=== PATIENT | male | born 1950 | race Caucasian/White ===

== ENCOUNTER 2017-08-07 14:38 | Observation (INO) | payer OTHER ==
--- NOTE | 2017-08-07 14:40 | PDOC ---
Rapid Medical Evaluation Time Seen by Provider: 08/07/17 14:40 Medical Evaluation: Allergies Allergy/AdvReac Type Severity Reaction Status Date / Time tramadol Allergy Verified 08/07/17 14:39 08/07/17 14:40 66 year old male with HTN, NIDDM, HLD, obesity, cigarette smoking, fatty liver disease, GERD. Presents complaining of chest pain that started while cleaning kitchen today. Pain currently 10/10, with shortness of breath. +Diaphoresis. Under some stress caring for sick . 7 cigarettes per day since age 16, "quit" last Saturday BP at home 99/61, patient reports baseline 140s systolic Had stress test 3 yrs ago which he reports was normal. 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 Alert, oriented, appears anxious. RRR, S1/S2. Scant expiratory wheeze. Plan: -Stat EKG -Labs including CBC, CMP, PT/INR, BNP, troponin -CXR -To Main ED for further evaluation
[2017-08-07 14:46] VITALS: BMI 42.5
[2017-08-07 15:19] LABS: BASO % 0.5 % (0-2.0); EOS % 1.2 % (0-4.5); HEMATOCRIT 47.6 % (35.4-49); HEMOGLOBIN 16.3 GM/dL (11.7-16.9); LYMPH % 36.9 % (8-40); MCH 31.9 pg (25.7-33.7); MCHC 34.3 g/dl (32.0-35.9); MEAN CELL VOLUME 92.9 fl (80-96); MEAN PLT VOLUME 8.5 fl (7.5-11.1); MONO % 11.1 % (3.8-10.2); NEUT % 50.3 % (42.8-82.8); PLATELET COUNT 188 K/MM3 (134-434); RBC 5.12 M/mm3 (4.00-5.60); RDW 14.3 % (11.9-15.9); WHITE BLOOD COUNT 5.9 K/mm3 (4.0-10.0)
--- NOTE | 2017-08-07 15:20 | PDOC ---
History of Present Illness - General Chief Complaint: Chest Pain Stated Complaint: SICK Time Seen by Provider: 08/07/17 14:40 - History of Present Illness Initial Comments: 08/07/17 15:55 The patient is a 66 year old male with a history of HTN, HLD, DM who presents for evaluation of chest pain. The patient reports that he has been experiencing nausea, cough, over the past 1 week for which he saw his primary care provider 1 day ago and was diagnosed with an Upper Respiratory Illness. However, he reports experiencing severe left sided constant chest pressure with associated "sweating" while cleaning earlier today prompting his presentation to the ED for evaluation. He denies similar symptoms in the past and noted that his bp was low at home as well. He otherwise denies fevers, chills, SOB, vomiting, abdominal pain, or changes with urination or bowel movements. Past History - Past Medical History Allergies/Adverse Reactions: Allergies Allergy/AdvReac Type Severity Reaction Status Date / Time tramadol Allergy Verified 08/07/17 14:39 Home Medications: Ambulatory Orders Losartan Potassium [Cozaar] 100 mg PO HS 06/08/13 Linagliptin/Metformin HCl [Jentadueto 2.5 mg-1000 mg Tab] 1 each PO BID Simvastatin [Zocor -] 10 mg PO DAILY 06/09/13 Empagliflozin [Jardiance] 10 mg PO DAILY 10/19/14 Cyclobenzaprine HCl [Flexeril] 5 mg PO PRN PRN 01/09/15 Ergocalciferol (Vitamin D2) [Vitamin D] 50,000 unit PO WEEKLY 03/28/15 Omeprazole [Prilosec (RX)] 40 mg PO DAILY 03/28/15 Pramipexole Di-HCl [Mirapex] 5 mg PO HS 03/28/15 Zolpidem Tartrate [Ambien] 10 mg PO HS 03/28/15 Albuterol Sulfate Inhaler - [Ventolin HFA Inhaler -] 2 inh PO Q6H 10/10/15 Tamsulosin HCl [Flomax -] 0.4 mg PO HS 10/10/15 Vitamin B Complex [B Complex] 1 each PO DAILY 10/10/15 levoFLOXacin [Levaquin -] 500 mg PO DAILY #7 tablet 10/11/15 Acarbose [Precose -] 25 mg PO DAILY 08/07/17 Glipizide [Glipizide ER] 10 mg PO DAILY 08/07/17 Anemia: No Asthma: Yes Cancer: No Cardiac Disorders: Yes (SOB,) CVA: No COPD: No (sleep apnea, USES CPAP) CHF: No Dementia: No Diabetes: Yes GI Disorders: Yes (GERD) Disorders: Yes (KIDNEY STONES) HTN: Yes Hypercholesterolemia: Yes Kidney Stones: Yes Liver Disease: Yes (FATTY LIVER) Seizures: No Thyroid Disease: No - Surgical History Abdominal Surgery: Yes Appendectomy: No Cardiac Surgery: No Cholecystectomy: Yes Lung Surgery: No Neurologic Surgery: No Orthopedic Surgery: Yes (LEFT KNEE SX) - Immunization History Immunization Up to Date: Yes - Suicide/Smoking/Psychosocial Hx Smoking Status: Yes Smoking History: Current every day smoker Have you smoked in the past 12 months: Yes Number of Cigarettes Smoked Daily: 7 Information on smoking cessation initiated: No 'Breaking Loose' booklet given: 10/19/14 Hx Alcohol Use: No Drug/Substance Use Hx: No Substance Use Type: None Hx Substance Use Treatment: Yes Review of Systems - Review of Systems Comments:: 08/07/17 15:59 Constitutional: No fevers, chills, fatigue, malaise HEENT: No Rhinorrhea, nasal congestion, visual changes Cardiovascular: Chest pain, Palpitations. No syncope, lightheadedness Respiratory: Cough. No SOB, Hemoptysis, Gastrointestinal: Nausea. No Abdominal pain, Vomiting, Constipation, Diarrhea, Melena Genitourinary: No Dysuria, Frequency, Urgency, Hesitancy, Hematuria, Flank pain Musculoskeletal: No Myalgia, arthralgia Skin: No rashes, itching, bruising, pallor Neurologic: No Headache, Dizziness, Numbness, Weakness, or Tingling Psychiatric: No Hallucinations. No SI or HI *Physical Exam - Vital Signs Last Vital Signs Temp Pulse Resp BP Pulse Ox 98.3 F 90 16 110/57 97 08/07/17 14:40 08/07/17 14:40 08/07/17 14:40 08/07/17 14:40 08/07/17 14:40 - Physical Exam Comments: 08/07/17 16:00 General Appearance: Nourished. No Apparent Distress HEENT: EOMI, CÉSAR. No Pharyngeal Erythema, Tonsillar Exudate, Tonsillar Erythema Neck: No Cervical Lymphadenopathy Respiratory/Chest: Lungs Clear, Normal Breath Sounds. Mild expiratory wheezing noted on exam. Mild reproducible tenderness to palpation on the left anterior chest. No Crackles, Rales, Rhonchi, Cardiovascular: Regular Rhythm, Regular Rate. No Murmur, Gallops, Rubs Gastrointestinal/Abdominal: Normal Bowel Sounds, Soft. No Guarding, Rebound, Tenderness Musculoskeletal: No CVA Tenderness Extremity: Normal Capillary Refill Integumentary: Psoriasis noted to the patient's back. Normal Color, Dry, Warm Neurologic: Fully Oriented, Alert, Normal Mood/Affect, Normal Response, Heart Score/ECG Review - History History: Moderately suspicious - Electrocardiogram EKG: Non specific repolarization disturbance - Age Age: 45-65 - Risk Factors Risk Factors Heart Score: Yes Hx Hypercholesterolemia, Yes Hx Hypertension, Yes Hx Diabetes, Yes Smoking History, Yes Hx Obesity Based on the list above the patient has:: >/=3 risk factors or Hx atherosclerotic disease - Troponin Troponin: </= normal limit - Score Heart Score - Total: 5 #1 ECG reviewed & interpreted by me at: 15:42 (Right Bundle Branch Block) General ECG Interpretation: Sinus Rhythm, Normal Rate, No acute ischemic changes Compared to previous ECG there are: No significant change (10/10/15) ED Treatment Course - LABORATORY CBC & Chemistry Diagram: 08/07/17 15:00 08/07/17 15:00 Medical Decision Making - Medical Decision Making 08/07/17 16:02 The patient is a 66 year old male with a history of HTN, HLD, DM who presents for evaluation of chest pain. Differential includes but is not limited to: ACS , Arrhythmia, Pneumonia, infectious, metabolic derangement. Given the patient' s history and physical exam, we will obtain a cbc, cmp, troponin, bnp, lactate, blood cultures, chest plain film, and ekg to evaluate further. We will treat the patient in the meantime with duoneb, solu-medrol, zosyn, and iv fluids. We will continue to monitor and reassess in the meantime. 08/07/17 17:42 cbc, cmp, troponin, bnp, lactate are unremarkable. Chest Plain film is unremarkable as read by our radiologist. We discussed the case with Dr. Padgett who accepted the patient for admission. We will continue to monitor and reassess. *DC/Admit/Observation/Transfer Diagnosis at time of Disposition: Chest pain Qualifiers: Chest pain type: unspecified Qualified Code(s): R07.9 - Chest pain, unspecified - Discharge Dispostion Condition at time of disposition: Stable Admit: Yes - Referrals Referrals: Albert Quinonez MD [Primary Care Provider] - - Patient Instructions - Post Discharge Activity
[2017-08-07 15:40] LABS: PROTHROMBIN TIME (PATIENT) 11.3 SEC (9.7-13.0)
[2017-08-07 15:51] LABS: ALBUMIN 3.5 g/dl (3.4-5.0); ANION GAP 6 (8-16); BILIRUBIN,TOTAL 0.5 mg/dL (0.2-1.0); BLOOD UREA NITROGEN 18 mg/dL (7-18); CHLORIDE 106 mmol/L (98-107); CO2 27 mmol/L (21-32); CREATININE 1.2 mg/dL (0.7-1.3); GLUCOSE,RANDOM 146 mg/dL (74-106); SGPT/ALT 39 U/L (12-78); SODIUM 139 mmol/L (136-145); TOT PROT 6.9 g/dl (6.4-8.2)
--- NOTE | 2017-08-07 15:51 | PDOC ---
Attending Attestation - Resident Resident Name: Tip Curran - ED Attending Attestation I have performed the following: I have examined & evaluated the patient, The case was reviewed & discussed with the resident, I agree w/resident's findings & plan, Exceptions are as noted - Medical Decision Making 08/07/17 15:51 I, Dr. Hamida Dial, DO, attest that this document has been prepared under my direction and personally reviewed by me in its entirety. I further attest, that it accurately reflects all work, treatment, procedures and medical decision -making performed by me. 08/07/17 16:07 a/p: 66yo male with asthma, copd, tobacco use, dm with CP/SOb on exertion -diaphoretic with cp -recent URI with MINER and CP -will check labs, cultures, trop, ekg, cxr, nebs, ivf hydration, nausea control -will hydrate -suspect 8lb wt loss from uncontrolled dm - unable to take his meds secondary to n/v -will most likely need to stay for obs for cardiac eval for ACS given diaphoresis, miner, cp <Hamida Dial - Last Filed: 08/07/17 16:07> - HPI HPI: 08/07/17 16:16 The patient is a 66 year old male, with a significant past medical history of silver scale psoriasis, asthma and COPD, who presents to the emergency department with chest pain, shortness of breath, diaphoresis for 24 hours. He states he was sick with runny nose and dry cough for about a week before being seen b7 a doctor yesterday who diagnosed the patient with URI and prescribed levaquin. The patient states he became concerned about the left sided, constant chest pain, because he has never experienced the pain before. He denies radiation of his chest pain. He reports his chest pain and SOB and exacerbated with walking short distances. He also reports associated diaphoresis with his chest pain. He states he has had decreased appetite and 8lb weight loss in the past 7 days. He states the smell and taste of food has been off putting. He states his blood sugars have been all over the past week but will usually be low 150s. He states he has been intermittently nauseous and has not taken his medications because of the nausea. He reports 2 bowel movements today. He denies headache and dizziness. He denies fever, chills diarrhea and constipation. He denies dysuria, frequency, urgency and hematuria. Allergies: tramadol - Physicial Exam PE: 08/07/17 16:16 Constitutional: Awake, alert, oriented. No acute distress. Head: Normocephalic. Atraumatic Eyes: PERRL. EOMI. Conjunctivae are not pale. ENT: (+) Mucous membranes are DRY and intact. Posterior pharynx without exudates or erythema. Uvula midline. Neck: Supple. Full ROM. No lymphadenopathy. Cardiovascular: Regular rate. Regular rhythm. S1, S2 regular. Distal pulses are 2+ and symmetric. Pulmonary/Chest: (+) Diminished breath sounds.Left anterior chest wall ttp. No evidence of respiratory distress. Clear to auscultation bilaterally No wheezing, rales or rhonchi. Abdominal: Obese, Soft and non-distended. There is no tenderness. No rebound, guarding or rigidity. No organomegaly. No palpable masses. Good bowel sounds. Back: No CVA tenderness. Musculoskeletal: (+) trace edema to bilateral ankles. No cyanosis. No clubbing. Full range of motion in all extremities. Nocalf tenderness. Radial/ pedal pulses are intact and 2+ bilaterally Skin: (+) Silver scale psoriasis diffusely to back and upper extremitie. Skin is warm and dry. No petechiae. No purpura. Neurological: Alert and oriented to person, place, and time. Cranial nerves II -XII are grossly intact. Normal speech. Strength is grossly symmetric. No sensory deficits. Psychiatric: Good eye contact. Normal interaction, affect and behavior. - Medical Decision Making 08/07/17 16:16 Documentation prepared by Shanda Bryson, acting as medical technician assistant for Hamida Dial DO <Shanda Bryson - Last Filed: 08/07/17 16:16> Heart Score/ECG Review - ECG Intrepretation Comment:: 08/07/17 15:51 sinus at 85, RBBB, no acute st/t wave findings <Hamida Dial - Last Filed: 08/07/17 16:07>
[2017-08-07 15:54] LABS: ALK PHOS 92 U/L (45-117); N-TERMINAL BNP 45.46 pg/ml (5-125)
[2017-08-07 16:01] LABS: POTASSIUM 4.2 mmol/L (3.5-5.1); SGOT/AST 37 U/L (15-37)
[2017-08-07] MEDS ORDERED: ASPIRIN 81 MG CHEWABLE TABLETS PO ONE (16:02)
[2017-08-07] MEDS ORDERED: methylPREDNISolone NA SUCC 125 MG/2 ML VIAL IVPB ONE (16:02)
[2017-08-07] MEDS ORDERED: SODIUM CHLORIDE 0.9% 1000 ML INFUS.BAG IV ONE (16:02)
[2017-08-07] MEDS ORDERED: ONDANSETRON 4 MG/2 ML VIAL IVPUSH ONE (16:02)
[2017-08-07] MEDS ORDERED: ALBUTEROL SO4 2.5/IPRATROPIUM 0.5 INH SOL 3 ML VIAL.NEB. NEB ONE ×2 (16:02→16:12)
[2017-08-07] MEDS ORDERED: methylPREDNISolone NA SUCC 125 MG/2 ML VIAL ONE (16:12)
[2017-08-07] MEDS ORDERED: ONDANSETRON 4 MG/2 ML VIAL ONE (16:12)
[2017-08-07] MEDS ORDERED: ASPIRIN 81 MG CHEWABLE TABLETS ONE (16:12)
[2017-08-07 16:33] LABS: VENOUS PC02 41.5 mmHg (38-52); VENOUS PH 7.4 (7.32-7.42)
--- NOTE | 2017-08-07 19:51 | EKG ---
Test Reason : Blood Pressure : / mmHG Vent. Rate : 085 BPM Atrial Rate : 085 BPM P-R Int : 144 ms QRS Dur : 134 ms QT Int : 414 ms P-R-T Axes : 039 017 014 degrees QTc Int : 492 ms NORMAL SINUS RHYTHM RIGHT BUNDLE BRANCH BLOCK ABNORMAL ECG WHEN COMPARED WITH ECG OF 10-OCT-2015 04:27, NO SIGNIFICANT CHANGE WAS FOUND Confirmed by DIAN STEVENSON MD ([id number]) on 08/07/2017 7:51:30 PM Referred By: Confirmed By:DIAN STEVENSON MD
[2017-08-07] MEDS ORDERED: ZOLPIDEM TARTRATE 5 MG TABLET PO PRN (23:16)
[2017-08-08] MEDS ORDERED: ALBUTEROL SO4 2.5/IPRATROPIUM 0.5 INH SOL 3 ML VIAL.NEB. NEB PRN (02:51)
[2017-08-08] MEDS ORDERED: PT OWN MED DRAWER 7, Y5N ONE ×3 (05:56→17:22)
[2017-08-08] MEDS: INSULIN SLIDING SCALE (NOVOLOG) 1 VIAL SQ SCH ×4 (06:28→17:11)
[2017-08-08] MEDS ORDERED: glipiZIDE-XL 10 MG TAB.ER.24 (FP) PO SCH (07:00)
[2017-08-08 08:01] LABS: BASO % 0.1 % (0-2.0); HEMATOCRIT 48.3 % (35.4-49); HEMOGLOBIN 16.3 GM/dL (11.7-16.9); LYMPH % 14.7 % (8-40); MCH 31.8 pg (25.7-33.7); MCHC 33.7 g/dl (32.0-35.9); MEAN CELL VOLUME 94.2 fl (80-96); MEAN PLT VOLUME 8.5 fl (7.5-11.1); MONO % 5.4 % (3.8-10.2); NEUT % 79.8 % (42.8-82.8); PLATELET COUNT 207 K/MM3 (134-434); RBC 5.13 M/mm3 (4.00-5.60); WHITE BLOOD COUNT 6.8 K/mm3 (4.0-10.0)
[2017-08-08 08:14] LABS: ALBUMIN 3.7 g/dl (3.4-5.0); ANION GAP 10 (8-16); BLOOD UREA NITROGEN 17 mg/dL (7-18); CALCIUM 9.7 mg/dL (8.5-10.1); CHLORIDE 103 mmol/L (98-107); CO2 27 mmol/L (21-32); CREATININE 1.3 mg/dL (0.7-1.3); GLUCOSE,RANDOM 228 mg/dL (74-106); POTASSIUM 5.5 mmol/L (3.5-5.1); SGOT/AST 26 U/L (15-37); SGPT/ALT 41 U/L (12-78); SODIUM 140 mmol/L (136-145)
[2017-08-08 08:19] LABS: ALK PHOS 93 U/L (45-117); BILIRUBIN,TOTAL 0.4 mg/dL (0.2-1.0); TOT PROT 7.4 g/dl (6.4-8.2)
[2017-08-08] MEDS ORDERED: PATIENT'S OWN MEDICATION (NON-FORMULARY) (Linagliptin/Metformin Hcl [Jentadueto 2.5 Mg-100 PO SCH (10:00)
[2017-08-08] MEDS ORDERED: PATIENT'S OWN MEDICATION (NON-FORMULARY) (Empagliflozin [Jardiance] 10 MG) PO SCH (10:00)
[2017-08-08] MEDS ORDERED: ACARBOSE 25 MG PO SCH (10:00)
[2017-08-08] MEDS ORDERED: HEPARIN NA (PORCINE) 5,000 UNITS/ML 1ML VIAL SQ SCH (10:00)
[2017-08-08] MEDS ORDERED: PANTOPRAZOLE 40 MG TABLET (FP) PO SCH (10:00)
--- NOTE | 2017-08-08 11:43 | CON.CARD ---
Consult Consult Specialty:: cardiology Reason for Consultation:: shortness of breath; atypical chest pain - History of Present Illness Chief Complaint: A&OX3; feels weak. History of Present Illness: The patient is a 66 year old male with a history of HTN, HLD, DM, diastolic CHF , ?COPD (on bronchodilators at home), morbid obesity, psoriatic arhtiritis, nonobstructive CAD (coronary angiogram done 2017). who presents for evaluation of chest pain. The patient reports that he has been experiencing nausea, cough , over the past 1 week for which he saw his primary care provider 1 day ago and was diagnosed with an Upper Respiratory Illness. However, he reports experiencing severe left sided constant chest pressure with associated "sweating " while cleaning earlier today prompting his presentation to the ED for evaluation. He denies similar symptoms in the past and noted that his bp was low at home as well. He otherwise denies fevers, chills, SOB, vomiting, abdominal pain, or changes with urination or bowel movements. - History Source History Provided By: Patient, Medical Record Limitations to Obtaining History: No Limitations - Past Medical History Cardio/Vascular: Yes: CAD, CHF, HTN, Hyperlipdemia Pulmonary: Yes: Asthma Gastrointestinal: Yes: GERD Rheumatology: Yes: Other (psoriatic arthritis) - Alcohol/Substance Use Hx Alcohol Use: No - Smoking History Smoking history: Current every day smoker Have you smoked in the past 12 months: Yes Aproximately how many cigarettes per day: 5 Home Medications - Allergies Allergies/Adverse Reactions: Allergies Allergy/AdvReac Type Severity Reaction Status Date / Time tramadol Allergy Verified 08/07/17 14:39 - Home Medications Home Medications: Ambulatory Orders Losartan Potassium [Cozaar] 100 mg PO HS 06/08/13 Linagliptin/Metformin HCl [Jentadueto 2.5 mg-1000 mg Tab] 1 each PO BID Simvastatin [Zocor -] 10 mg PO DAILY 06/09/13 Empagliflozin [Jardiance] 10 mg PO DAILY 10/19/14 Cyclobenzaprine HCl [Flexeril] 5 mg PO PRN PRN 01/09/15 Ergocalciferol (Vitamin D2) [Vitamin D] 50,000 unit PO WEEKLY 03/28/15 Omeprazole [Prilosec (RX)] 40 mg PO DAILY 03/28/15 Pramipexole Di-HCl [Mirapex] 5 mg PO HS 03/28/15 Zolpidem Tartrate [Ambien] 10 mg PO HS 03/28/15 Albuterol Sulfate Inhaler - [Ventolin HFA Inhaler -] 2 inh PO Q6H 10/10/15 Tamsulosin HCl [Flomax -] 0.4 mg PO HS 10/10/15 Vitamin B Complex [B Complex] 1 each PO DAILY 10/10/15 levoFLOXacin [Levaquin -] 500 mg PO DAILY #7 tablet 10/11/15 Acarbose [Precose -] 25 mg PO DAILY 08/07/17 Glipizide [Glipizide ER] 10 mg PO DAILY 08/07/17 - Risk Factors Known Risk Factors: Yes: Age, Diabetes Mellitus, Gender, Hypercholesterolemia, Hypertension, Physical Inactivity, Other (diastolic CHF; nonobstructive CAD; morbid obesity) Vital Signs: Vital Signs Temperature 98 F 08/08/17 10:00 Pulse Rate 68 08/08/17 10:00 Respiratory Rate 20 08/08/17 10:00 Blood Pressure 142/72 08/08/17 10:00 O2 Sat by Pulse Oximetry (%) 96 08/08/17 10:52 Constitutional: Yes: Calm, Obese Eyes: Yes: WNL HENT: Yes: WNL Neck: Yes: WNL Respiratory: Yes: Cough Gastrointestinal: Yes: Soft, Abdomen, Obese Renal/: No: Anuria Cardiovascular: Yes: Regular Rate and Rhythm JVD: No Carotid Bruit: No PMI: Non-Displaced Heart Sounds: Yes: S1, Split S2, S4 Murmur: Yes: Systolic Murmur, Grade 1 Musculoskeletal: Yes: Joint Stiffness (hands), Other (tenderness to mild palpation of the left anterior and central chest wall; no acute rash, but chronic psoriatic lesions) Extremities: Yes: WNL Edema: No Peripheral Pulses WNL: Yes Integumentary: Yes: Rash (marked psoriatic lesion covering the back; some lesions on the chest) Psychiatric: Yes: WNL - Other Data Labs, Other Data: CBC, BMP 08/08/17 07:20 08/08/17 07:20 INR, PTT INR 1.00 (0.82-1.09) 08/07/17 15:00 Troponin, BNP 08/07/17 08/08/17 15:00 03:45 Troponin I < 0.02 < 0.02 B-Natriuretic Peptide 45.46 Troponin, BNP 08/07/17 08/08/17 15:00 03:45 Troponin I < 0.02 < 0.02 B-Natriuretic Peptide 45.46 Abnormal Lab Results 08/07/17 08/07/17 08/07/17 15:00 15:00 16:16 Monocytes % 11.1 H Mixed VBG HCO3 25.3 H Potassium Anion Gap 6 L Random Glucose 146 H 08/08/17 07:20 Monocytes % Mixed VBG HCO3 Potassium 5.5 H D Anion Gap Random Glucose 228 H D Imaging - Results Chest X-ray: Image Reviewed (no acute pathology) EKG: Image Reviewed (NSR: RBBB) Problem List - Problems (1) Atypical chest pain Assessment/Plan: chest wall is tender to mild palpation. Hx nonobstuctive CAD on coronary angiogram done in 2017. Code(s): R07.89 - OTHER CHEST PAIN (2) Hyperkalemia Assessment/Plan: hold losartan; when K normalizes, restart at lower dose (HTN; DM). Code(s): E87.5 - HYPERKALEMIA (3) Abdominal pain Code(s): R10.9 - UNSPECIFIED ABDOMINAL PAIN Qualifiers: Abdominal location: right upper quadrant Qualified Code(s): R10.11 - Right upper quadrant pain (4) Back pain Code(s): M54.9 - DORSALGIA, UNSPECIFIED (5) Calculus of left kidney Code(s): N20.0 - CALCULUS OF KIDNEY (6) Diastolic CHF Assessment/Plan: ECHO: normal LVEF. loaraqtn held due to hyperkalemia; f/u Mg. Restart losartan at lower dose when K normaliizes. F/u cardiac issues as outpatient. Code(s): I50.30 - UNSPECIFIED DIASTOLIC (CONGESTIVE) HEART FAILURE
[2017-08-08 14:31] LABS: CHOLESTEROL 108 mg/dL (50-200); HDL CHOLESTEROL 41 mg/dL (40-60); TRIGLYCERIDES 150 mg/dL (35-160)
--- NOTE | 2017-08-08 15:29 | HP ---
Admitting History and Physical - Past Medical History Cardiovascular: Yes: CAD, CHF, HTN, Hyperlipdemia Pulmonary: Yes: Asthma Gastrointestinal: Yes: GERD Rheumatology: Yes: Other (psoriatic arthritis) - Smoking History Smoking history: Current every day smoker Have you smoked in the past 12 months: Yes Aproximately how many cigarettes per day: 5 - Alcohol/Substance Use Hx Alcohol Use: No Home Medications - Allergies Allergies/Adverse Reactions: Allergies Allergy/AdvReac Type Severity Reaction Status Date / Time tramadol Allergy Verified 08/07/17 14:39 - Home Medications Home Medications: Ambulatory Orders Losartan Potassium [Cozaar] 100 mg PO HS 06/08/13 Linagliptin/Metformin HCl [Jentadueto 2.5 mg-1000 mg Tab] 1 each PO BID Simvastatin [Zocor -] 10 mg PO DAILY 06/09/13 Empagliflozin [Jardiance] 10 mg PO DAILY 10/19/14 Cyclobenzaprine HCl [Flexeril] 5 mg PO PRN PRN 01/09/15 Ergocalciferol (Vitamin D2) [Vitamin D] 50,000 unit PO WEEKLY 03/28/15 Omeprazole [Prilosec (RX)] 40 mg PO DAILY 03/28/15 Pramipexole Di-HCl [Mirapex] 5 mg PO HS 03/28/15 Zolpidem Tartrate [Ambien] 10 mg PO HS 03/28/15 Albuterol Sulfate Inhaler - [Ventolin HFA Inhaler -] 2 inh PO Q6H 10/10/15 Tamsulosin HCl [Flomax -] 0.4 mg PO HS 10/10/15 Vitamin B Complex [B Complex] 1 each PO DAILY 10/10/15 levoFLOXacin [Levaquin -] 500 mg PO DAILY #7 tablet 10/11/15 Acarbose [Precose -] 25 mg PO DAILY 08/07/17 Glipizide [Glipizide ER] 10 mg PO DAILY 08/07/17 Physical Examination Vital Signs: Vital Signs Temperature 98 F 08/08/17 10:00 Pulse Rate 68 08/08/17 10:00 Respiratory Rate 20 08/08/17 10:00 Blood Pressure 142/72 08/08/17 10:00 O2 Sat by Pulse Oximetry (%) 96 08/08/17 10:52 Labs: CBC, BMP 08/08/17 07:20 08/08/17 07:20
[2017-08-08] MEDS ORDERED: metFORMIN HCL 500 MG TABLET (FP) PO SCH (16:30)
[2017-08-08 19:40] VITALS: BP 118/67; PULSE 65; TEMP 98.8
[2017-08-08] MEDS ORDERED: LOSARTAN POTASSIUM 50 MG TABLET (FP) PO SCH (22:00)
[2017-08-08] MEDS ORDERED: PRAMIPEXOLE DIHYDROCHLORIDE 1 MG TABLET PO SCH (22:00)
[2017-08-09] MEDS ORDERED: sitaGLIPtin PHOSPHATE 100 MG TABLET (FP) PO SCH (07:00)
[2017-08-12] MEDS ORDERED: ERGOCALCIFEROL (VITAMIN D2) 50,000 UNIT CAPSULE (FP) PO SCH (10:00)
== END 2017-08-08 19:18 | disposition home or self-care (01) ==
LOC: JER 14:38 → JERBED 17:38 → J4W 19:15
PROVIDERS: ADMIT Internal Medicine; ATTEND Internal Medicine
PROC: 3E033GC Introduction of Other Therapeutic Substance into Peripheral Vein, Percutaneous Approach (ICD-10-PCS; principal; 2017-08-07)
PROC: 3E0337Z Introduction of Electrolytic and Water Balance Substance into Peripheral Vein, Percutaneous Approach (ICD-10-PCS; 2017-08-07)
PROC: 3E0F7GC Introduction of Other Therapeutic Substance into Respiratory Tract, Via Natural or Artificial Opening (ICD-10-PCS; 2017-08-07)
DX: R07.89 Other chest pain (principal); I10 Essential (primary) hypertension; I50.30 Unspecified diastolic (congestive) heart failure; E11.9 Type 2 diabetes mellitus without complications; I25.10 Atherosclerotic heart disease of native coronary artery without angina pectoris; E78.5 Hyperlipidemia, unspecified; E66.9 Obesity, unspecified; F17.210 Nicotine dependence, cigarettes, uncomplicated; K76.0 Fatty (change of) liver, not elsewhere classified; E87.5 Hyperkalemia; K21.9 Gastro-esophageal reflux disease without esophagitis; J45.909 Unspecified asthma, uncomplicated; G47.30 Sleep apnea, unspecified; M54.9 Dorsalgia, unspecified; R10.11 Right upper quadrant pain; Z68.41 Body mass index [BMI] 40.0-44.9, adult; Z79.84 Long term (current) use of oral hypoglycemic drugs; Z99.89 Dependence on other enabling machines and devices; Z87.442 Personal history of urinary calculi
CPT/HCPCS: 36415; 71045-TC-FY; 80053; 80061; 82550; 82553; 82803; 82962; 83036; 83605; 83721; 83880; 84484; 85025; 85610; 87040; 93005; 93010; 93306-TC; 94640; 96374; 96375; 99285-25; G0378; J7030; J7620

== ENCOUNTER 2019-02-17 05:55 | Observation (INO) | payer OTHER ==
[2019-02-17 06:15] VITALS: BMI 43.0
[2019-02-17 06:49] LABS: HEMATOCRIT 45.7 % (35.4-49); HEMOGLOBIN 15.1 GM/dL (11.7-16.9); MCH 31.2 pg (25.7-33.7); MEAN CELL VOLUME 94.6 fl (80-96); MEAN PLT VOLUME 8.4 fl (7.5-11.1); PLATELET COUNT 253 K/MM3 (134-434); RBC 4.83 M/mm3 (4.00-5.60); RDW 14.8 % (11.9-15.9); WHITE BLOOD COUNT 9.9 K/mm3 (4.0-10.0)
[2019-02-17 07:34] LABS: ALBUMIN 3.5 g/dl (3.4-5.0); ALK PHOS 97 U/L (45-117); ANION GAP 6 MMOL/L (8-16); BILIRUBIN,TOTAL 0.5 mg/dL (0.2-1); CALCIUM 9.1 mg/dL (8.5-10.1); CHLORIDE 108 mmol/L (98-107); CO2 26 mmol/L (21-32); CREATININE 1.2 mg/dL (0.55-1.3); GLUCOSE,RANDOM 160 mg/dL (74-106); POTASSIUM 4.2 mmol/L (3.5-5.1); SGOT/AST 17 U/L (15-37); SGPT/ALT 25 U/L (13-61); SODIUM 139 mmol/L (136-145); TOT PROT 6.6 g/dl (6.4-8.2)
--- NOTE | 2019-02-17 07:45 | PDOC ---
History of Present Illness - General Chief Complaint: Chest Pain Stated Complaint: CHEST PAIN,SOB Time Seen by Provider: 02/17/19 07:29 - History of Present Illness Initial Comments: 02/17/19 08:08 Pt is a 68 y/o M with a significant pat medical history of HTN, HLD, DM, diastolic CHF, COPD (on bronchodilators at home), morbid obesity, psoriatic arthritis, nonobstructive CAD (coronary angiogram done 2017) who presents to [facility] due to chest pain. Pt endorses he has been experiencing chest pain for about 3 days however pain became suddenly worse overnight, prompting him to come to our ED. Pt does endorse 1 episode of vomiting during this time period. Pain is described as a 10/10 in severity, radiates to left arm, and is reproducible with deep palpation. Denies LOC, nausea, or diaphoresis. Past History - Past Medical History Allergies/Adverse Reactions: Allergies Allergy/AdvReac Type Severity Reaction Status Date / Time tramadol Allergy Verified 10/06/17 10:27 Home Medications: Ambulatory Orders Linagliptin/Metformin HCl [Jentadueto 2.5 mg-1000 mg Tab] 1 each PO BID Simvastatin [Zocor -] 10 mg PO DAILY 06/09/13 Empagliflozin [Jardiance] 10 mg PO DAILY 10/19/14 Cyclobenzaprine HCl [Flexeril] 5 mg PO PRN PRN 01/09/15 Ergocalciferol (Vitamin D2) [Vitamin D] 50,000 unit PO WEEKLY 03/28/15 Omeprazole [Prilosec (RX)] 40 mg PO DAILY 03/28/15 Pramipexole Di-HCl [Mirapex] 5 mg PO HS 03/28/15 Zolpidem Tartrate [Ambien] 10 mg PO HS 03/28/15 Albuterol Sulfate Inhaler - [Ventolin HFA Inhaler -] 2 inh PO Q6H 10/10/15 Tamsulosin HCl [Flomax -] 0.4 mg PO HS 10/10/15 Vitamin B Complex [B Complex] 1 each PO DAILY 10/10/15 Acarbose [Precose -] 25 mg PO DAILY 08/07/17 Glipizide [Glipizide ER] 10 mg PO DAILY 08/07/17 Oxycodone HCl/Acetaminophen [Percocet 5-325 mg Tablet] 1 tab PO Q6H PRN #12 tablet MDD 4 tabs 10/06/17 Anemia: No Asthma: Yes Cancer: No Cardiac Disorders: Yes (SOB,) CVA: No COPD: No (sleep apnea, USES CPAP) CHF: No Dementia: No Diabetes: Yes GI Disorders: Yes (GERD) Disorders: Yes (KIDNEY STONES) HTN: Yes Hypercholesterolemia: Yes Kidney Stones: Yes Liver Disease: Yes (FATTY LIVER) Seizures: No Thyroid Disease: No - Surgical History Abdominal Surgery: Yes Appendectomy: No Cardiac Surgery: No Cholecystectomy: Yes Lung Surgery: No Neurologic Surgery: No Orthopedic Surgery: Yes (LEFT KNEE SX) - Immunization History Immunization Up to Date: Yes - Psycho Social/Smoking Cessation Hx Smoking Status: Yes Smoking History: Former smoker Have you smoked in the past 12 months: Yes Number of Cigarettes Smoked Daily: 20 If you are a former smoker, when did you quit?: january, Information on smoking cessation initiated: No 'Breaking Loose' booklet given: 08/07/17 Hx Alcohol Use: No Drug/Substance Use Hx: No Substance Use Type: None Hx Substance Use Treatment: Yes Cardiac Specific PMH - Complaint Specific PMHX Pacemaker: No Review of Systems - Review of Systems Able to Perform ROS?: Yes Is the patient limited Qatari proficient: No Constitutional: No: Chills, Fever, Night Sweats, Weakness HEENTM: No: Blurred Vision Respiratory: Yes: Orthopnea, Shortness of Breath, SOB with Exertion, SOB at Rest. No: Cough, Stridor, Wheezing, Productive cough, Hemoptysis Cardiac (ROS): Yes: Chest Pain. No: Lightheadedness ABD/GI: Yes: Vomiting. No: Abdominal Distended, Constipated, Diarrhea : No: Burning, Dysuria, Discharge, Flank Pain, Hematuria Musculoskeletal: Yes: Muscle Pain (left arm pain ). No: Joint Pain Integumentary: Yes: Lesions (psoriatic arthritis plaques ). No: Bruising, Change in Color Neurological: No: Paresthesia, Tingling, Weakness, Dizziness *Physical Exam - Vital Signs Last Vital Signs Temp Pulse Resp BP Pulse Ox 98.1 F 81 22 H 164/82 98 02/17/19 05:55 02/17/19 05:55 02/17/19 05:55 02/17/19 05:55 02/17/19 05:55 - Physical Exam General Appearance: Yes: Appropriately Dressed, Apparent Distress HEENT: positive: EOMI, Normal ENT Inspection. negative: Scleral Icterus (R), Scleral Icterus (L) Neck: positive: Supple. negative: Tender, Rigid, Decreased range of motion Respiratory/Chest: positive: Chest Tender, Lungs Clear, Normal Breath Sounds. negative: Respiratory Distress, Accessory Muscle Use, Labored Respiration, Decreased Breath Sounds, Paradoxal Breathing, Crackles, Rales, Rhonchi, Wheezing Cardiovascular: positive: Regular Rhythm, S1, S2. negative: JVD, Bradycardia, Tachycardia Gastrointestinal/Abdominal: positive: Soft. 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 71 BPM.) - Electrocardiogram EKG: Non specific repolarization disturbance - Age Age: >/= 65 - Risk Factors Risk Factors Heart Score: Yes Hx Hypercholesterolemia, Yes Hx Diabetes, Yes Smoking History, Yes Hx Obesity Based on the list above the patient has:: >/=3 risk factors or Hx atherosclerotic disease - Troponin Troponin: </= normal limit - Score Heart Score - Total: 5 ED Treatment Course - LABORATORY CBC & Chemistry Diagram: 02/17/19 06:34 02/17/19 06:34 - ADDITIONAL ORDERS Additional order review: Laboratory Results 02/17/19 06:34 Sodium 139 Potassium 4.2 Chloride 108 H Carbon Dioxide 26 Anion Gap 6 L BUN 19.0 H Creatinine 1.2 Est GFR (CKD-EPI)AfAm 72.59 Est GFR (CKD-EPI)NonAf 62.63 Random Glucose 160 H Calcium 9.1 Total Bilirubin 0.5 AST 17 ALT 25 Alkaline Phosphatase 97 Creatine Kinase 137 Troponin I < 0.02 B-Natriuretic Peptide 181.0 H Total Protein 6.6 Albumin 3.5 02/17/19 06:34 RBC 4.83 MCV 94.6 MCHC 33.0 RDW 14.8 MPV 8.4 - Medications Given in the ED: ED Medications Discontinued Medications Generic Name Dose Route Start Last Admin Trade Name Freq PRN Reason Stop Dose Admin Acetaminophen 1,000 mg 02/17/19 08:04 02/17/19 08:35 Tylenol - PO 02/17/19 08:05 1,000 mg ONCE ONE Administration Albuterol/Ipratropium 1 amp 02/17/19 08:22 02/17/19 08:20 Duoneb - NEB 02/17/19 08:23 1 amp ONCE ONE Administration Aspirin 324 mg 02/17/19 08:14 02/17/19 08:35 Asa - PO 02/17/19 08:15 324 mg ONCE ONE Administration Medical Decision Making - Medical Decision Making 02/17/19 08:03 Tropnonin negative. Will repeat, CBC cmp unremarkable. CXR taken. Pending results. will administer Tylenol 1000 for pain. 02/17/19 08:[address] Fisher. Would like patient to be admitted for further workup- stress tomorrow. 02/17/19 09:[address] Padgett, Pt to be admitted to [facility] for further cardiac workup. Discharge - Discharge Information Condition: Fair - Follow up/Referral - Patient Discharge Instructions - Post Discharge Activity
[2019-02-17] MEDS ORDERED: ACETAMINOPHEN 500 MG TABLET (FP) PO ONE (08:04)
--- NOTE | 2019-02-17 08:13 | PDOC ---
Attending Attestation - Resident Resident Name: DeviFlorin - ED Attending Attestation I have performed the following: I have examined & evaluated the patient, The case was reviewed & discussed with the resident, I agree w/resident's findings & plan, Exceptions are as noted - HPI HPI: 02/17/19 08:13 68y M hx of asthma, dm, htn, hl, psoriasis presents with complaint of chest pain. Pt states that fo the past several days he has had pain in his L flank/ arm. The pain is constant, pt denies any sob, n/v, back pain, abd pain. There is no wosening of hte pain with exertion. Pt dnies any fever/chills, cough, hemoptysis, leg swelling, dysuria, diarrhea, melena, numnbess/tingling/ weakness. no recent history of trauma/falls/injury/heavy lifting. Pt als onotes his BP was elevated this mornin and he took a cozaar around 4am. PCP: Dr. Jaclyn Quinonez Card: Dr. Fisher - Physicial Exam PE: 02/17/19 08:26 GENERAL: The patient is awake, alert, and fully oriented, Nontoxic - in no acute distress. HEAD: Normocephalic, atraumatic. EYES: extraocular movements intact, sclera anicteric, conjunctiva clear. ENT: Normal voice, Moist mucous membranes. NECK: Normal range of motion, supple LUNGS: Breath sounds equal, clear to auscultation bilaterally. No wheezes, no rhonchi, no rales. HEART: Regular rate and rhythm, normal S1 and S2 without murmur, rub or gallop. ABDOMEN: Soft, nontender, No guarding, no rebound. No CVA tenderness EXTREMITIES: Normal range of motion, no edema. NEUROLOGICAL: No facial assymetry, Normal speech, PSYCH: Normal mood, normal affect. SKIN: Warm, Dry, normal turgor, psoriatic plaques, - Medical Decision Making 02/17/19 08:29 ddx - acs, msk, pna, consider dissection - however unlikely bp - was 150/80 on R arm, 148/78 on L arm and pain is relatively atypical will obain cxr, cbc, cmp, trop, ekg 02/17/19 12:29 case dw card labs/cxr reviewed will admit for further risk stratification Heart Score/ECG Review - ECG Impressions Comment:: 02/17/19 08:30 Twelve-lead EKG was performed and reviewed by me. There is normal sinus rhythm with a normal rate. left xis deviation RBBB
[2019-02-17] MEDS ORDERED: ASPIRIN 81 MG CHEWABLE TABLETS PO ONE (08:14)
[2019-02-17] MEDS ORDERED: ALBUTEROL SO4 2.5/IPRATROPIUM 0.5 INH SOL 3 ML VIAL.NEB. NEB ONE ×2 (08:19→08:22)
[2019-02-17] MEDS ORDERED: ACETAMINOPHEN 325 MG TABLET (FP) ONE (08:43)
[2019-02-17] MEDS ORDERED: ASPIRIN 81 MG CHEWABLE TABLETS ONE (08:43)
--- NOTE | 2019-02-17 09:44 | EKG ---
Test Reason : Blood Pressure : / mmHG Vent. Rate : 071 BPM Atrial Rate : 071 BPM P-R Int : 158 ms QRS Dur : 140 ms QT Int : 440 ms P-R-T Axes : 006 -37 003 degrees QTc Int : 478 ms NORMAL SINUS RHYTHM LEFT AXIS DEVIATION RIGHT BUNDLE BRANCH BLOCK ABNORMAL ECG WHEN COMPARED WITH ECG OF 07-AUG-2017 14:49, QRS AXIS SHIFTED LEFT Confirmed by MD HAILEY, YOSSI ([id number]) on 02/17/2019 9:44:13 AM Referred By: Confirmed By:YOSSI HART MD
--- NOTE | 2019-02-17 09:46 | CON.CARD ---
Consult Consult Specialty:: cardiology Reason for Consultation:: ACS; multiple cardiac risks - History of Present Illness Chief Complaint: Pt A&Ox3; no chest pain or dyspnea presently. Pt had left arm pain that traveled to the left anterior chest wall at rest. History of Present Illness: Mr. Kumar is a 68y with PM hx of morbid obesity, asthma, dm, htn, hl, psoriasis, gait disturbance, who presents with complaint of chest pain. Pt states that fo the past several days he has had pain in his L flank/arm. The pain is constant, pt denies any sob, n/v, back pain, abd pain. There is no worsening of the pain with exertion. Pt denies any fever/chills, cough, hemoptysis, leg swelling, dysuria, diarrhea, melena, numnbess/tingling/ weakness. no recent history of trauma/falls/injury/heavy lifting. Pt also notes his BP was elevated this morning and he took losartan around 4am. PCP: Dr. Jaclyn Quinonez Card: Dr. Fisher - History Source History Provided By: Patient, Medical Record Limitations to Obtaining History: No Limitations - Past Medical History Cardio/Vascular: Yes: CAD, CHF, HTN, Hyperlipdemia Pulmonary: Yes: Asthma Gastrointestinal: Yes: GERD Rheumatology: Yes: Other (psoriatic arthritis) Dermatology: Yes: Psoriasis - Alcohol/Substance Use Hx Alcohol Use: No - Smoking History Smoking history: Former smoker Have you smoked in the past 12 months: Yes Aproximately how many cigarettes per day: 20 If you are a former smoker, when did you quit?: january, Home Medications - Allergies Allergies/Adverse Reactions: Allergies Allergy/AdvReac Type Severity Reaction Status Date / Time tramadol Allergy Verified 10/06/17 10:27 - Home Medications Home Medications: Ambulatory Orders Simvastatin [Zocor -] 10 mg PO DAILY 06/09/13 Empagliflozin [Jardiance] 10 mg PO DAILY 10/19/14 Ergocalciferol (Vitamin D2) [Vitamin D] 50,000 unit PO WEEKLY 03/28/15 Omeprazole [Prilosec (RX)] 40 mg PO DAILY 03/28/15 Pramipexole Di-HCl [Mirapex] 5 mg PO HS 03/28/15 Zolpidem Tartrate [Ambien] 10 mg PO HS 03/28/15 Albuterol Sulfate Inhaler - [Ventolin HFA Inhaler -] 2 inh PO Q6H 10/10/15 Tamsulosin HCl [Flomax -] 0.4 mg PO HS 10/10/15 Oxycodone HCl/Acetaminophen [Percocet 5-325 mg Tablet] 1 tab PO Q6H PRN #12 tablet MDD 4 tabs 10/06/17 Losartan Potassium [Cozaar] 100 mg PO DAILY 02/18/19 Metformin HCl [Glucophage] 1,000 mg PO BID 02/18/19 Semaglutide [Ozempic] 0.25 mg SQ WEEKLY 02/18/19 Vital Signs: Vital Signs Temperature 98.1 F 02/17/19 05:55 Pulse Rate 81 02/17/19 05:55 Respiratory Rate 22 H 02/17/19 05:55 Blood Pressure 164/82 02/17/19 05:55 O2 Sat by Pulse Oximetry (%) 98 02/17/19 05:55 - Other Data Labs, Other Data: CBC, BMP 02/17/19 06:34 02/17/19 06:34 Troponin, BNP 02/17/19 06:34 Troponin I < 0.02 B-Natriuretic Peptide 181.0 H Troponin, BNP 02/17/19 06:34 Troponin I < 0.02 B-Natriuretic Peptide 181.0 H Problem List - Problems (1) HLD (hyperlipidemia) Code(s): E78.5 - HYPERLIPIDEMIA, UNSPECIFIED (2) HTN (hypertension) Code(s): I10 - ESSENTIAL (PRIMARY) HYPERTENSION (3) Atypical chest pain Assessment/Plan: Pt denies chest pain on exertion. FOr the past two weeks, he has been having left arm pain that traveled to the left anterior chest wall (at rest). Hx nonobstructive, mild CAD on coronary angiogram 2006; reportedly negative stress MIBI in 2014. TNI < 0.02 x 2 EKG: NSR; LAD; RBBB Plan: ECHO for LVEF, wall motion, valve status (technically difficult in 2018). Lipid profile BP control. Stress Lexiscan MIBI. Code(s): R07.89 - OTHER CHEST PAIN (4) Diabetes Code(s): E11.9 - TYPE 2 DIABETES MELLITUS WITHOUT COMPLICATIONS (5) Diastolic CHF Code(s): I50.30 - UNSPECIFIED DIASTOLIC (CONGESTIVE) HEART FAILURE
[2019-02-17 10:58] LABS: CHOLESTEROL 120 mg/dL (50-200); HDL CHOLESTEROL 36 mg/dL (40-60); LDL CHOLESTEROL (ONLY SJRH) 59 mg/dL (5-100); TRIGLYCERIDES 242 mg/dL (0-150)
--- NOTE | 2019-02-17 22:01 | HP ---
Admitting History and Physical - Past Medical History Cardiovascular: Yes: CAD, CHF, HTN, Hyperlipdemia Pulmonary: Yes: Asthma Gastrointestinal: Yes: GERD Rheumatology: Yes: Other (psoriatic arthritis) Dermatology: Yes: Psoriasis - Smoking History Smoking history: Former smoker Have you smoked in the past 12 months: Yes Aproximately how many cigarettes per day: 20 If you are a former smoker, when did you quit?: january, - Alcohol/Substance Use Hx Alcohol Use: No Home Medications - Allergies Allergies/Adverse Reactions: Allergies Allergy/AdvReac Type Severity Reaction Status Date / Time tramadol Allergy Verified 10/06/17 10:27 - Home Medications Home Medications: Ambulatory Orders Linagliptin/Metformin HCl [Jentadueto 2.5 mg-1000 mg Tab] 1 each PO BID Simvastatin [Zocor -] 10 mg PO DAILY 06/09/13 Empagliflozin [Jardiance] 10 mg PO DAILY 10/19/14 Cyclobenzaprine HCl [Flexeril] 5 mg PO PRN PRN 01/09/15 Ergocalciferol (Vitamin D2) [Vitamin D] 50,000 unit PO WEEKLY 03/28/15 Omeprazole [Prilosec (RX)] 40 mg PO DAILY 03/28/15 Pramipexole Di-HCl [Mirapex] 5 mg PO HS 03/28/15 Zolpidem Tartrate [Ambien] 10 mg PO HS 03/28/15 Albuterol Sulfate Inhaler - [Ventolin HFA Inhaler -] 2 inh PO Q6H 10/10/15 Tamsulosin HCl [Flomax -] 0.4 mg PO HS 10/10/15 Vitamin B Complex [B Complex] 1 each PO DAILY 10/10/15 Acarbose [Precose -] 25 mg PO DAILY 08/07/17 Glipizide [Glipizide ER] 10 mg PO DAILY 08/07/17 Oxycodone HCl/Acetaminophen [Percocet 5-325 mg Tablet] 1 tab PO Q6H PRN #12 tablet MDD 4 tabs 10/06/17 Physical Examination Vital Signs: Vital Signs Temperature 98.2 F 02/17/19 14:00 Pulse Rate 82 02/17/19 18:04 Respiratory Rate 18 02/17/19 18:00 Blood Pressure 137/75 02/17/19 14:00 O2 Sat by Pulse Oximetry (%) 94 L 02/17/19 18:00 Labs: CBC, BMP 02/17/19 06:34 02/17/19 06:34
[2019-02-17] MEDS ORDERED: ALBUTEROL SO4 2.5/IPRATROPIUM 0.5 INH SOL 3 ML VIAL.NEB. NEB PRN (22:02)
[2019-02-17] MEDS ORDERED: TAMSULOSIN HCL 0.4 MG CAP PO SCH (22:45)
[2019-02-17] MEDS ORDERED: ATORVASTATIN CA 20 MG TABLET (FP) PO SCH (22:45)
[2019-02-17] MEDS ORDERED: PRAMIPEXOLE DIHYDROCHLORIDE 0.5 MG TABLET PO SCH (22:45)
[2019-02-17] MEDS: HEPARIN NA (PORCINE) 5,000 UNITS/ML 1ML VIAL SQ SCH (22:52)
[2019-02-17] MEDS: INSULIN SLIDING SCALE (NOVOLOG) 1 VIAL SQ SCH (22:56)
[2019-02-18] MEDS: INSULIN SLIDING SCALE (NOVOLOG) 1 VIAL SQ SCH ×3 (06:21→17:03)
[2019-02-18] MEDS ORDERED: glipiZIDE-XL 10 MG TAB.ER.24 (FP) PO SCH (07:00)
[2019-02-18] MEDS ORDERED: ASPIRIN COATED 81 MG TABLET.EC PO SCH (10:00)
[2019-02-18] MEDS ORDERED: REGADENOSON 0.4 MG/5 ML PRE-FILLED SYRINGE IVPUSH ONE ×2 (10:09→10:15)
--- NOTE | 2019-02-18 11:07 | PN ---
Progress Note, Physician History of Present Illness: Mr. Kumar is a 68y with PM hx of morbid obesity, asthma, dm, htn, hl, psoriasis, gait disturbance, who presents with complaint of chest pain. Pt states that fo the past several days he has had pain in his L flank/arm. The pain is constant, pt denies any sob, n/v, back pain, abd pain. There is no worsening of the pain with exertion. Pt denies any fever/chills, cough, hemoptysis, leg swelling, dysuria, diarrhea, melena, numnbess/tingling/ weakness. no recent history of trauma/falls/injury/heavy lifting. Pt also notes his BP was elevated this morning and he took losartan around 4am. PCP: Dr. Jaclyn Quinonez Card: Dr. Fisher - Current Medication List Current Medications: Active Medications Albuterol/Ipratropium (Duoneb -) 1 amp NEB Q6H PRN PRN Reason: SHORTNESS OF BREATH Aspirin (Ecotrin -) 81 mg PO DAILY [facility] Atorvastatin Calcium (Lipitor -) 20 mg PO HS [facility] Last Admin: 02/17/19 22:53 Dose: 20 mg Glipizide (Glucotrol Xl -) 10 mg PO AM [facility] Last Admin: 02/18/19 06:21 Dose: Not Given Heparin Sodium (Porcine) (Heparin -) 5,000 unit SQ BID [facility] Last Admin: 02/17/19 22:52 Dose: Not Given Insulin Aspart (Novolog Vial Sliding Scale -) 1 vial SQ [facility]; Protocol Last Admin: 02/18/19 06:21 Dose: Not Given Pramipexole Dihydrochloride (Mirapex -) 0.5 mg PO [facility] Last Admin: 02/17/19 22:53 Dose: 0.5 mg Tamsulosin HCl (Flomax -) 0.4 mg PO HS [facility] Last Admin: 02/17/19 22:52 Dose: 0.4 mg - Objective Vital Signs: Vital Signs Temperature 98 F 02/18/19 08:23 Pulse Rate 80 02/18/19 08:23 Respiratory Rate 18 02/18/19 08:23 Blood Pressure 146/82 02/18/19 08:23 O2 Sat by Pulse Oximetry (%) 98 02/17/19 22:00 Eyes: Yes: WNL, Conjunctiva Clear, EOM Intact HENT: Yes: WNL, Atraumatic, Normocephalic Neck: Yes: WNL, Supple, Trachea Midline Cardiovascular: Yes: WNL, Regular Rate and Rhythm Respiratory: Yes: WNL, Regular, CTA Bilaterally Gastrointestinal: Yes: WNL, Normal Bowel Sounds Genitourinary: Yes: WNL Musculoskeletal: Yes: WNL Extremities: Yes: WNL Edema: No Integumentary: Yes: WNL Neurological: Yes: WNL, Alert, Oriented ...Motor Strength: WNL Psychiatric: Yes: WNL Labs: CBC, BMP 02/17/19 06:34 02/17/19 06:34 Assessment/Plan - Problems (1) HLD (hyperlipidemia) Code(s): E78.5 - HYPERLIPIDEMIA, UNSPECIFIED (2) HTN (hypertension) Code(s): I10 - ESSENTIAL (PRIMARY) HYPERTENSION (3) Atypical chest pain Assessment/Plan: Pt denies chest pain on exertion. FOr the past two weeks, he has been having left arm pain that traveled to the left anterior chest wall (at rest). Hx nonobstructive, mild CAD on coronary angiogram 2006; reportedly negative stress MIBI in 2014. TNI < 0.02 x 2 EKG: NSR; LAD; RBBB Plan: ECHO for LVEF, wall motion, valve status (technically difficult in 2018). Lipid profile BP control. Stress Lexiscan MIBI. Code(s): R07.89 - OTHER CHEST PAIN (4) Diabetes Code(s): E11.9 - TYPE 2 DIABETES MELLITUS WITHOUT COMPLICATIONS (5) Diastolic CHF Code(s): I50.30 - UNSPECIFIED DIASTOLIC (CONGESTIVE) HEART FAILURE
--- NOTE | 2019-02-18 12:03 | ECHO ---
Name: SARBJIT CARLOS Exam:Adult Echocardiogram Study Date: 02/18/2019 08:20 AM Age: 68 yrs Reason For Study: Chest pain Height: 63 in Weight: 243 lb BSA: 2.1 m2 MMode/2D Measurements & Calculations IVSd: 1.3 cm Ao root diam: 3.5 cm LVIDd: 3.4 cm LA dimension: 3.8 cm LVIDs: 2.5 cm ACS: 1.8 cm LVPWd: 1.6 cm EDV(Teich): 48.4 ml LVOT diam: 1.9 cm ESV(Teich): 22.4 ml Doppler Measurements & Calculations MV E max silvino: 64.7 cm/sec Ao V2 max: 146.4 cm/sec MV A max silvino: 105.1 cm/sec Ao max P.6 mmHg MV E/A: 0.62 Ao V2 mean: 101.4 cm/sec Ao mean P.7 mmHg Ao V2 VTI: 28.5 cm NEELAM(I,D): 1.5 cm2 NEELAM(V,D): 1.7 cm2 LV V1 max P.9 mmHg MR max silvino: 135.7 cm/sec LV V1 mean P.7 mmHg MR max P.4 mmHg LV V1 max: 84.9 cm/sec LV V1 mean: 61.3 cm/sec LV V1 VTI: 15.3 cm SV(LVOT): 44.0 ml TR max silvino: 140.6 cm/sec TR max P.9 mmHg RVSP(TR): 17.9 mmHg Med Peak E' Silvino: 15.2 cm/sec RAP systole: 10.0 mmHg Med E/e': 4.2 Lat Peak E' Silvino: 14.3 cm/sec Lat E/e': 4.5 Procedure A two-dimensional transthoracic echocardiogram with color flow and Doppler was performed. The study w as technically difficult with many images being suboptimal in quality. Left Ventricle The left ventricular size, thickness and function are normal. The left ventricle is not well visualiz ed. The left ventricular ejection fraction is normal. E/A reversal consistent with but not diagnostic of poor LV compliance. Regional wall motion abnormalities cannot be excluded due to limited visualization. Right Ventricle The right ventricle is not well visualized. Atria Normal left and right atrial size and function. Mitral Valve There is mild mitral valve thickening. There is no mitral valve stenosis. There is trace to mild mitr al regurgitation. Tricuspid Valve There is mild tricuspid valve thickening. There is no tricuspid stenosis. There is Trace to mild tric uspid regurgitation. Right ventricular systolic pressure is normal. Aortic Valve The aortic valve is not well visualized. No hemodynamically significant valvular aortic stenosis. No aortic regurgitation is present. Pulmonic Valve The pulmonic valve is not well visualized. Great Vessels The aortic root is normal size. Pericardium/Pleura There is no pericardial effusion. Interpretation Summary The study was technically difficult with many images being suboptimal in quality. The left ventricular size, thickness and function are normal The left ventricular ejection fraction is normal. The left ventricle is not well visualized. Regional wall motion abnormalities cannot be excluded due to limited visualization. E/A reversal consistent with but not diagnostic of poor LV compliance There is trace to mild mitral regurgitation. There is Trace to mild tricuspid regurgitation. Right ventricular systolic pressure is normal. MD Vladislav Muñoz 02/18/2019 12:02 PM
[2019-02-18] MEDS: HEPARIN NA (PORCINE) 5,000 UNITS/ML 1ML VIAL SQ SCH (13:51)
[2019-02-18 14:56] VITALS: BP 133/79; PULSE 101; TEMP 97.9
[2019-02-18] MEDS ORDERED: LOSARTAN POTASSIUM 50 MG TABLET (FP) PO SCH (16:00)
[2019-02-18] MEDS ORDERED: ATORVASTATIN CA 10 MG TABLET (FP) PO SCH (22:00)
== END 2019-02-18 18:26 | disposition home or self-care (01) ==
LOC: JER 05:55 → OBSVTOIN 09:00 → JERBED 09:00 → UNDOADMOB 09:00 → INTOOBSV 09:00 → JERBED 20:47 → J4W 20:47 → JERBED 02-18 14:12
PROVIDERS: ADMIT Internal Medicine; ATTEND Internal Medicine
PROC: 3E033GC Introduction of Other Therapeutic Substance into Peripheral Vein, Percutaneous Approach (ICD-10-PCS; principal; 2019-02-18)
PROC: 3E0F7GC Introduction of Other Therapeutic Substance into Respiratory Tract, Via Natural or Artificial Opening (ICD-10-PCS; 2019-02-18)
DX: R07.89 Other chest pain (principal); I11.0 Hypertensive heart disease with heart failure; E78.5 Hyperlipidemia, unspecified; E11.9 Type 2 diabetes mellitus without complications; I50.30 Unspecified diastolic (congestive) heart failure; J45.909 Unspecified asthma, uncomplicated; L40.52 Psoriatic arthritis mutilans; I25.10 Atherosclerotic heart disease of native coronary artery without angina pectoris; G47.30 Sleep apnea, unspecified; K21.9 Gastro-esophageal reflux disease without esophagitis; K76.0 Fatty (change of) liver, not elsewhere classified; E66.01 Morbid (severe) obesity due to excess calories; Z68.41 Body mass index [BMI] 40.0-44.9, adult; Z87.891 Personal history of nicotine dependence; Z99.89 Dependence on other enabling machines and devices; Z98.61 Coronary angioplasty status; Z88.8 Allergy status to other drugs, medicaments and biological substances; Z87.442 Personal history of urinary calculi
CPT/HCPCS: 36415; 71046-TC-FY; 78452-TC; 80053; 80061; 82550; 82962; 83721; 83880; 84443; 84484; 85027; 93005; 93010; 93017; 93306-TC; 94640; 96374; 99285-25; A9502; G0378; J2785

== ENCOUNTER 2019-06-10 18:21 | Emergency (ER) | payer OTHER ==
[2019-06-10 18:32] VITALS: BMI 43.0
--- NOTE | 2019-06-10 20:36 | PDOC ---
History of Present Illness - General Chief Complaint: Pain, Acute Stated Complaint: FEELING WEAK History Source: Patient Exam Limitations: No Limitations - History of Present Illness Initial Comments: 06/10/19 21:03 68 year old M with a hx of CAD, psoriasis (not on immune modulation therapy), CHF, HTN, DM, HLD, and nephrolithiasis requiring previous lithotripsy in 2019 with subsequent hydronephrosis presents to the emergency department with left flank pain that has been ongoing for 1 day. Per the patient, he has had chronic left flank pain since the lithotripsy, but over the past 1 month has had as sociated generalized weakness without laterality. The pain became worst today, 8/10, sharp, with radiation to the left flank. The patient denies the following: fevers, chills, chest pain, SOB, abdominal pain, leg swelling/pain, dysuria, hematuria, diarrhea, and nausea/vomiting. Past History - Past Medical History Allergies/Adverse Reactions: Allergies Allergy/AdvReac Type Severity Reaction Status Date / Time tramadol Allergy Verified 06/10/19 18:30 Home Medications: Ambulatory Orders Empagliflozin [Jardiance] 10 mg PO DAILY 10/19/14 Ergocalciferol (Vitamin D2) [Vitamin D] 50,000 unit PO WEEKLY 03/28/15 Omeprazole [Prilosec (RX)] 40 mg PO DAILY 03/28/15 Zolpidem Tartrate [Ambien] 10 mg PO HS 03/28/15 Albuterol Sulfate Inhaler - [Ventolin HFA Inhaler -] 2 inh PO Q6H 10/10/15 Aspirin Coated [Ecotrin -] 81 mg PO DAILY #30 tablet.ec 02/18/19 Atorvastatin Ca [Lipitor] 20 mg PO HS #30 tablet 02/18/19 Glipizide Xl [Glucotrol Xl -] 10 mg PO AM #30 tab.er.24 02/18/19 Losartan Potassium [Cozaar -] 100 mg PO DAILY #30 tablet 02/18/19 Losartan Potassium [Cozaar] 100 mg PO DAILY 02/18/19 Metformin HCl [Glucophage] 1,000 mg PO BID 02/18/19 Pramipexole Dihydrochloride [Mirapex -] 0.5 mg PO HS tablet 02/18/19 Semaglutide [Ozempic] 0.25 mg SQ WEEKLY 02/18/19 Tamsulosin HCl [Flomax -] 0.4 mg PO HS #30 cap.er.24h 02/18/19 Ibuprofen [Motrin -] 600 mg PO TID #21 tablet 06/11/19 Anemia: No Asthma: Yes Cancer: No Cardiac Disorders: Yes (SOB,) CVA: No COPD: No (sleep apnea, USES CPAP) CHF: No Dementia: No Diabetes: Yes GI Disorders: Yes (GERD) Disorders: Yes (KIDNEY STONES) HTN: Yes Hypercholesterolemia: Yes Kidney Stones: Yes Liver Disease: Yes (FATTY LIVER) Seizures: No Thyroid Disease: No - Surgical History Abdominal Surgery: Yes Appendectomy: No Cardiac Surgery: No Cholecystectomy: Yes Lung Surgery: No Neurologic Surgery: No Orthopedic Surgery: Yes (LEFT KNEE SX) - Immunization History Immunization Up to Date: Yes - Psycho Social/Smoking Cessation Hx Smoking Status: Yes Smoking History: Never smoked Have you smoked in the past 12 months: No Number of Cigarettes Smoked Daily: 20 If you are a former smoker, when did you quit?: january, Information on smoking cessation initiated: No 'Breaking Loose' booklet given: 08/07/17 Hx Alcohol Use: No Drug/Substance Use Hx: No Substance Use Type: None Hx Substance Use Treatment: Yes Review of Systems - Review of Systems Able to Perform ROS?: Yes Is the patient limited Nepali proficient: No Constitutional: No: Chills, Diaphoresis, Fever, Weakness HEENTM: No: Eye Pain, Ear Pain, Nose Pain, Throat Pain, Mouth Pain Respiratory: No: Cough, Shortness of Breath, Hemoptysis Cardiac (ROS): No: Chest Pain, Lightheadedness, Palpitations, Chest Tightness ABD/GI: No: Constipated, Diarrhea, Nausea, Rectal Bleeding, Vomiting, Tarry Stools : Yes: Flank Pain (left). No: Burning, Dysuria, Hematuria Musculoskeletal: No: Back Pain, Joint Pain, Neck Pain Integumentary: No: Bruising, Erythema, Rash Neurological: No: Headache, Numbness, Tingling, Tremors Psychiatric: No: Change in Appetite Endocrine: No: Unexplained Weight Loss Hematologic/Lymphatic: No: Anemia *Physical Exam - Vital Signs Last Vital Signs Temp Pulse Resp BP Pulse Ox 98.0 F 100 H 22 H 161/86 98 06/10/19 18:06/10/19 18:06/10/19 18:06/10/19 18:06/10/19 18:26 - Physical Exam General Appearance: Yes: Nourished, Appropriately Dressed. No: Apparent Distress, Intoxicated HEENT: positive: EOMI, CÉSAR, Normal Voice, Symmetrical, Pharynx Normal, Hearing Grossly Normal. negative: Pale Conjunctivae, Scleral Icterus (R), Scleral Icterus (L), Muffled/Hoarse voice, Pharyngeal Erythema, Tonsillar Exudate, Tonsillar Erythema, Nasal Congestion, Rhinorrhea, Sinus Tenderness, Excessive drooling Neck: positive: Trachea midline, Supple. negative: Tender, Lymphadenopathy (R), Lymphadenopathy (L), Tender lateral, Tender midline Respiratory/Chest: positive: Lungs Clear, Normal Breath Sounds. negative: Chest Tender, Respiratory Distress, Accessory Muscle Use, Crackles, Rales, Rhonchi, Stridor, Wheezing Cardiovascular: positive: Regular Rhythm, Regular Rate, S1, S2. negative: Systolic Murmur Gastrointestinal/Abdominal: positive: Normal Bowel Sounds, Flat, Soft. negative: Tender Lymphatic: negative: Adenopathy Musculoskeletal: positive: Normal Inspection. negative: CVA Tenderness (R), CVA Tenderness (L), Vertebral Tenderness Extremity: positive: Normal Capillary Refill, Normal Inspection, Normal Range of Motion. negative: Tender Integumentary: positive: Normal Color, Dry, Warm, Other (diffuse psoriasis plaques) Neurologic: positive: Fully Oriented, Alert, Normal Mood/Affect ED Treatment Course - LABORATORY CBC & Chemistry Diagram: 06/10/19 21:15 06/10/19 21:15 Medical Decision Making - Medical Decision Making 68 year old M with a hx of CAD, psoriasis (not on immune modulation therapy), CHF, HTN, DM, HLD, and nephrolithiasis requiring previous lithotripsy in 2019 with subsequent hydronephrosis presents to the emergency department with left flank pain that has been ongoing for 1 day. Initial vitals: Initial Vital Signs Temp Pulse Resp BP Pulse Ox 98.0 F 100 H 22 H 161/86 98 06/10/19 18:26 06/10/19 18:26 06/10/19 18:26 06/10/19 18:06/10/19 18:26 Work up: patient presents to the emergency department with left flank pain with a benign physical examination ddx: UTI vs nephrolithiasis vs pyelonephritis vs gastritis vs gastroenteritis vs costochondritis. Will obtain labs and imaging Laboratory Tests 06/10/19 06/10/19 06/10/19 21:15 21:15 21:15 WBC 11.0 H RBC 5.07 Hgb 15.9 Hct 47.4 MCV 93.6 MCH 31.5 MCHC 33.6 RDW 13.9 Plt Count 256 MPV 8.0 Absolute Neuts (auto) 7.1 Neutrophils % 64.7 Lymphocytes % 22.2 Monocytes % 8.2 Eosinophils % 4.0 Basophils % 0.9 Nucleated RBC % 0 Sodium 142 Potassium 4.5 Chloride 107 Carbon Dioxide 29 Anion Gap 7 L BUN 17.3 Creatinine 1.3 Est GFR (CKD-EPI)AfAm 65.90 Est GFR (CKD-EPI)NonAf 56.86 Random Glucose 153 H Calcium 9.7 Total Bilirubin 0.3 AST 23 ALT 30 Alkaline Phosphatase 101 Troponin I < 0.02 Total Protein 7.3 Albumin 3.7 Urine Color Urine Appearance Urine pH Ur Specific [place] Urine Protein Urine Glucose (UA) Urine Ketones Urine Blood Urine Nitrite Urine Bilirubin Urine Urobilinogen Ur Leukocyte Esterase 06/10/19 21:15 WBC RBC Hgb Hct MCV MCH MCHC RDW Plt Count MPV Absolute Neuts (auto) Neutrophils % Lymphocytes % Monocytes % Eosinophils % Basophils % Nucleated RBC % Sodium Potassium Chloride Carbon Dioxide Anion Gap BUN Creatinine Est GFR (CKD-EPI)AfAm Est GFR (CKD-EPI)NonAf Random Glucose Calcium Total Bilirubin AST ALT Alkaline Phosphatase Troponin I Total Protein Albumin Urine Color Yellow Urine Appearance Clear Urine pH 5.5 Ur Specific [place] 1.042 H Urine Protein Trace Urine Glucose (UA) 3+ H Urine Ketones Trace H Urine Blood Negative Urine Nitrite Negative Urine Bilirubin Negative Urine Urobilinogen 1.0 Ur Leukocyte Esterase Negative glucose in urine, but not UTI 11.0 leukocytosis, likely not indicative of infectious process Patient was signed out to Dr. Martin for further work up. Pending CTAP Discharge - Discharge Information Problems reviewed: Yes Clinical Impression/Diagnosis: Left flank pain, chronic - Additional Discharge Information Prescriptions: Ibuprofen [Motrin -] 600 mg PO TID #21 tablet - Follow up/Referral Referrals: Donya Quinonez [Primary Care Provider] - - Patient Discharge Instructions Patient Printed Discharge Instructions: DI for Flank Pain Additional Instructions: Please return to the emergency department with any new or worsening symptoms or concerns. Please follow up with your urologist and primary care physician within 72 hours. Can take Motrin every 6-8 hours as needed for pain. - Post Discharge Activity
[2019-06-10] MEDS ORDERED: SODIUM CHLORIDE 1,000 ML IV STA (21:04)
--- NOTE | 2019-06-10 21:12 | PDOC ---
Attending Attestation - Resident Resident Name: TaniaAnand - ED Attending Attestation I have performed the following: I have examined & evaluated the patient, The case was reviewed & discussed with the resident, I agree w/resident's findings & plan, Exceptions are as noted - HPI HPI: 06/10/19 21:09 68 yo M h/o htn hld DM bph, psoriasis ( no immune modulators ) here with c/o persistant left flank pain x 1 month, acutely worse this evening. pt state he has not had any hematuria, but did have urinary frequency. no f but does report chills. no n/v no mod factors. has had similar pain in the past with renal colic. requiring lithotripsy urologist dr Quinonez - Physicial Exam PE: 06/10/19 21:11 awake alert lungs clear bilat heart rrr no mrg abd soft obese, nontender. mild left cva tenderness. skin with diffuse psoriatic plaques. alert oriented x 3. legs no edema. CV warm well perfuse. nuero alert oriented x 3. - Medical Decision Making 06/10/19 21:12 68 yo male with dm htn hld obesisty prior renal colic here withflank pain. plan ua labs ct spiral r/o stone.
--- NOTE | 2019-06-10 21:40 | PDOC ---
*Physical Exam - Vital Signs Last Vital Signs Temp Pulse Resp BP Pulse Ox 98.0 F 100 H 22 H 161/86 98 06/10/19 18:26 06/10/19 18:26 06/10/19 18:26 06/10/19 18:26 06/10/19 18:26 - Physical Exam 06/10/19 21:36 GENERAL: Awake, alert, and fully oriented, in no acute distress HEAD: No signs of trauma, normocephalic, atraumatic EYES: PERRLA, EOMI, sclera anicteric, conjunctiva clear ENT: Hearing grossly normal, nares patent, oropharynx clear without exudates. Moist mucosa NECK: Normal ROM, supple, no lymphadenopathy, JVD, or masses LUNGS: No distress, speaks full sentences, clear to auscultation bilaterally HEART: Regular rate and rhythm, normal S1 and S2, no murmurs, rubs or gallops, peripheral pulses normal and equal bilaterally. ABDOMEN: + Left flank/CVA ttp. Soft, NDS, normoactive bowel sounds. No guarding , no rebound. No masses EXTREMITIES : Normal inspection, Normal range of motion, no edema. No clubbing or cyanosis NEUROLOGICAL: Cranial nerves II through XII grossly intact. Normal speech, normal gait, no focal sensorimotor deficits SKIN: Warm, Dry, normal turgor, no rashes or lesions noted ED Treatment Course - LABORATORY CBC & Chemistry Diagram: 06/10/19 21:15 06/10/19 21:15 - ADDITIONAL ORDERS Additional order review: 06/10/19 23:20 Vicky Craig Name: SARBJIT CARLOS DEPARTMENT OF RADIOLOGY Phys: Anand Marin RESIDENT : 1950 Age: 68 Sex: M [facility] Acct: [id number] Loc: [address] Exam Date: 06/10/19 Status: EDDIE MckeonsRACHEL [id number] Unit Number: [id number] EXAM#: TYPE/EXAM: RESULT: [id number] CT/SPIRAL- RENAL-STONE CT Renal stone CT without contrast Clinical information: left flank pain Multiplanar imaging was performed. No intravenous or enteric contrast was administered. No urinary tract calculus is seen. There is no hydronephrosis. In comparison to a CT exam of 12/25/2018 interval resolution of left hydroureteronephrosis is noted. The etiology of the left hydroureteronephrosis was uncertain on the basis of the prior exam ( performed without intravenous contrast). No gross urinary tract mass lesion is seen on noncontrast imaging. Bilateral renal cortical cysts are seen as on prior studies without interval change. There is diffuse fatty infiltration of the liver. The spleen, pancreas, and adrenal glands demonstrate no discrete noncontrast abnormality. The aorta appears unremarkable in caliber. No definite lymphadenopathy is seen on the basis of size. Status post cholecystectomy as on the prior exam. Interval decreased size of a fluid collection is seen adjacent to the gallbladder fossa currently measuring 2.4 x 1 cm, previously 4 x 3 cm. No biliary tract dilatation is noted. No CT evidence of acute appendicitis or diverticulitis. There is no gross noncontrast small bowel pathology. No evidence of free intraperitoneal fluid or bowel obstruction. Mild prostate enlargement. Impression: No CT evidence of urolithiasis or hydronephrosis. Interval resolution of moderate left hydroureteronephrosis is noted in comparison to a CT exam of - ? etiology. Diffuse hepatic steatosis as on prior exams. Status post cholecystectomy as on the prior exam. Interval decreased size of a fluid collection is seen within the gallbladder fossa currently measuring 2.4 x 1 cm, previously 4 x 3 cm. Marked bilateral L4-L5 and marked right L5-S1 degenerative facet arthropathy. Reported By: Law Velarde MD 07/26 Anand Marin Technologist: Dario Foster Transcribed Date/Time: 2307 [employer]: Law Velarde Printed Date/Time: By: Medical Decision Making - Medical Decision Making 06/10/19 21:33 68 yo M with h/o morbid obesity, CAD, CHF, HTN, HLD, DM who p/w worsening, unremitting, crampy, 11/15, non radiating, flank pain x 1 day. Patient reports chronic left flank pain, but current flank pain increased in severity. Reports h /o ESWL 12/25. Denies palpitations, cough, wheezing, orthopena, PND, leg swelling/pain, N/V, F,C, CP, SOB, urinary complaints, hematuria, BPR, abdominal pain, diarrhea, constipation, lightheadedness, weakness, sensory changes. HR 100 , RR 22, vitals otherwise wnl, AF, A&O3. Physical exam unremarkable. Will assess for obstructive uropathy. Low suspicion pyelo. Patient with absent systemic complaints, non toxic, and absent CVA ttp. Will provide analgesic control, and reasses. 06/10/19 21:44 ED Course: Toradol 30 mg IV 06/10/19 22:33 Laboratory Tests 06/10/19 06/10/19 06/10/19 21:15 21:15 21:15 WBC 11.0 H Hgb 15.9 Hct 47.4 Plt Count 256 Sodium 142 Potassium 4.5 BUN 17.3 Creatinine 1.3 Urine Color Yellow Ur Specific [place] 1.042 H Urine Glucose (UA) 3+ H Urine Ketones Trace H Urine Blood Negative Urine Nitrite Negative Ur Leukocyte Esterase Negative 06/10/19 23:20 CT AP Impression: No CT evidence of urolithiasis or hydronephrosis. Interval resolution of moderate left hydroureteronephrosis is noted in comparison to a CT exam of - ? etiology. Diffuse hepatic steatosis as on prior exams. Status post cholecystectomy as on the prior exam. Interval decreased size of a fluid collection is seen within the gallbladder fossa currently measuring 2.4 x 1 cm, previously 4 x 3 cm. Marked bilateral L4-L5 and marked right L5-S1 degenerative facet arthropathy. 06/10/19 23:22 06/11/19 00:15 Patient pain improved. stable for d/c with return precautions. Discharge - Discharge Information Problems reviewed: Yes Clinical Impression/Diagnosis: Left flank pain, chronic Condition: Stable - Follow up/Referral Referrals: Donya Quinonez [Primary Care Provider] - - Patient Discharge Instructions Patient Printed Discharge Instructions: DI for Flank Pain Additional Instructions: Please return to the emergency department with any new or worsening symptoms or concerns. Please follow up with your urologist and primary care physician within 72 hours. - Post Discharge Activity
[2019-06-10 21:45] LABS: BASO % 0.9 % (0-2.0); HEMATOCRIT 47.4 % (35.4-49); HEMOGLOBIN 15.9 GM/dL (11.7-16.9); LYMPH % 22.2 % (8-40); MCH 31.5 pg (25.7-33.7); MCHC 33.6 g/dl (32.0-35.9); MEAN CELL VOLUME 93.6 fl (80-96); MONO % 8.2 % (3.8-10.2); NEUT % 64.7 % (42.8-82.8); PH,URINE 5.5 (5.0-8.0); PLATELET COUNT 256 K/MM3 (134-434); RBC 5.07 M/mm3 (4.00-5.60); RDW 13.9 % (11.9-15.9); URINE APPEARANCE CLEAR; URINE BILIRUBIN NEGATIVE (NEGATIVE); URINE COLOR YELLOW; URINE GLUCOSE (UA) 3+ (NEGATIVE); URINE KETONE TRACE (NEGATIVE); URINE LEUK ESTERASE NEGATIVE (NEGATIVE); URINE NITRITE NEGATIVE (NEGATIVE); URINE PROTEIN TRACE (NEGATIVE)
[2019-06-10 22:17] LABS: ALBUMIN 3.7 g/dl (3.4-5.0); BILIRUBIN,TOTAL 0.3 mg/dL (0.2-1); BLOOD UREA NITROGEN 17.3 mg/dL (7-18); CALCIUM 9.7 mg/dL (8.5-10.1); CREATININE 1.3 mg/dL (0.55-1.3); POTASSIUM 4.5 mmol/L (3.5-5.1); TOT PROT 7.3 g/dl (6.4-8.2)
[2019-06-10] MEDS ORDERED: KETOROLAC TROMETHAMINE 30 MG/1 ML VIAL IVPUSH ONE (23:21)
[2019-06-10] MEDS ORDERED: KETOROLAC TROMETHAMINE 30 MG/1 ML VIAL ONE (23:27)
[2019-06-11 00:32] VITALS: BP 108/67; PULSE 73; TEMP 98.4
== END 2019-06-11 01:12 | disposition home or self-care (01) ==
LOC: JER 18:21
PROC: 3E0333Z Introduction of Anti-inflammatory into Peripheral Vein, Percutaneous Approach (ICD-10-PCS; principal; 2019-06-10)
DX: R10.32 Left lower quadrant pain (principal); G89.29 Other chronic pain; Z88.8 Allergy status to other drugs, medicaments and biological substances; I51.9 Heart disease, unspecified; K76.0 Fatty (change of) liver, not elsewhere classified; K21.9 Gastro-esophageal reflux disease without esophagitis; I10 Essential (primary) hypertension; E78.00 Pure hypercholesterolemia, unspecified
CPT/HCPCS: 36415; 74176-TC; 80053; 81003; 84484; 85025; 99285-25; J7030

== ENCOUNTER 2019-12-20 11:35 | Emergency (ER) | payer OTHER ==
[2019-12-20 11:49] VITALS: BP 122/69; PULSE 100; TEMP 98; BMI 43.5
--- NOTE | 2019-12-20 13:42 | PDOC ---
History of Present Illness - General Chief Complaint: Pain Stated Complaint: LT. LEG PAIN Time Seen by Provider: 12/20/19 11:52 - History of Present Illness Initial Comments: 12/20/19 13:14 68M with PMH of CAD, psoriasis (not on systemic therapy), CHF, HTN, DM, HLD, nephrolithiasis presents with left leg pain after a fall out of bed 7-8 days prior. Patient states he has restless leg syndrome (not diagnosed by neuro) and get these "jerking" movements when at rest. He has had this more frequently over the past month, and has fallen out of bed because of this multiple times. After his fall 8 days ago, he had pain in his lower and upper left leg. HE can bear weight and ambulate, but with pain. Not relieved by tylenol or ibuprofen. States he hit his head on the dresser when he last fell 8 days ago. Denies LOC, headache, n/v, weakness, confusion, amnesia. PMH/PSH: as above Home Medications Medication Instructions Recorded Empagliflozin [Jardiance] 10 mg PO DAILY 10/19/14 Ergocalciferol (Vitamin D2) 50,000 unit PO WEEKLY 03/28/15 [Vitamin D] Omeprazole [Prilosec (RX)] 40 mg PO DAILY 03/28/15 Zolpidem Tartrate [Ambien] 10 mg PO HS 03/28/15 Albuterol Sulfate Inhaler - 2 inh PO Q6H 10/10/15 [Ventolin HFA Inhaler -] Aspirin Coated [Ecotrin -] 81 mg PO DAILY #30 tablet.ec 02/18/19 Atorvastatin Ca [Lipitor] 20 mg PO HS #30 tablet 02/18/19 Glipizide Xl [Glucotrol Xl -] 10 mg PO AM #30 tab.er.24 02/18/19 Losartan Potassium [Cozaar -] 100 mg PO DAILY #30 tablet 02/18/19 Losartan Potassium [Cozaar] 100 mg PO DAILY 02/18/19 Metformin HCl [Glucophage] 1,000 mg PO BID 02/18/19 Pramipexole Dihydrochloride 0.5 mg PO HS tablet 02/18/19 [Mirapex -] Semaglutide [Ozempic] 0.25 mg SQ WEEKLY 02/18/19 Tamsulosin HCl [Flomax -] 0.4 mg PO HS #30 cap.er.24h 02/18/19 Ibuprofen [Motrin -] 600 mg PO TID #21 tablet 06/11/19 Allergies Allergy/AdvReac Type Severity Reaction Status Date / Time tramadol Allergy Verified 12/20/19 11:48 PE GENERAL: Awake, alert, and fully oriented, in no acute distress HEAD: No signs of trauma, normocephalic, atraumatic EYES: PERRLA, EOMI, sclera anicteric, conjunctiva clear ENT: Auricles normal inspection, hearing grossly normal, nares patent, oropharynx clear without exudates. Moist mucosa NECK: Normal ROM, supple, no lymphadenopathy, JVD, or masses LUNGS: No distress, speaks full sentences, clear to auscultation bilaterally HEART: Regular rate and rhythm, normal S1 and S2, no murmurs, rubs or gallops, peripheral pulses normal and equal bilaterally. ABDOMEN: Soft, nontender, normoactive bowel sounds. No guarding, no rebound. EXTREMITIES : lower extremities are normal in appearance without obvious swelling or deformity. Left femur and tibia tender to palpation. Normal sensation, ROM, and strength. Left Quad pain with active extension of the leg. BACK: no midline tenderness, no saddle anesthesia NEUROLOGICAL: Normal speech, limping gait favoring the right leg, no focal sensorimotor deficits SKIN: Warm, Dry, psoriasis plaques on back Vital Signs Temp Pulse Resp BP Pulse Ox 98 F 100 H 18 122/69 100 12/20/19 11:44 12/20/19 11:44 12/20/19 11:44 12/20/19 11:44 12/20/19 11:44 MDM 68M with PMH of CAD, psoriasis (not on systemic therapy), CHF, HTN, DM, HLD, nephrolithiasis presents with left leg pain after a fall out of bed 7-8 days prior. Left femur and tibia are tender to palpation, and there is left quad pain with active extensionn. DDx includes LLE fracture (femur, tibia; but also pelvis, patella, fibula), subdural hematoma, partial seizure (causing him to "jerk" out of bed), muscle strain/tear. -CT head -plain films of left hip/pelvis, femur, tib/fibula -Morphine 4mg IM 12/20/19 18:41 CT head and plain films of the LLE are negative for acute pathology. -Knee immobilizer, crutches -Ortho follow up for the leg pain -Neuro follow up for the "jerk" movements DC home Past History - Medical History Allergies/Adverse Reactions: Allergies Allergy/AdvReac Type Severity Reaction Status Date / Time tramadol Allergy Verified 12/20/19 11:48 Home Medications: Ambulatory Orders Empagliflozin [Jardiance] 10 mg PO DAILY 10/19/14 Ergocalciferol (Vitamin D2) [Vitamin D] 50,000 unit PO WEEKLY 03/28/15 Omeprazole [Prilosec (RX)] 40 mg PO DAILY 03/28/15 Zolpidem Tartrate [Ambien] 10 mg PO HS 03/28/15 Albuterol Sulfate Inhaler - [Ventolin HFA Inhaler -] 2 inh PO Q6H 10/10/15 Aspirin Coated [Ecotrin -] 81 mg PO DAILY #30 tablet.ec 02/18/19 Atorvastatin Ca [Lipitor] 20 mg PO HS #30 tablet 02/18/19 Glipizide Xl [Glucotrol Xl -] 10 mg PO AM #30 tab.er.24 02/18/19 Losartan Potassium [Cozaar -] 100 mg PO DAILY #30 tablet 02/18/19 Losartan Potassium [Cozaar] 100 mg PO DAILY 02/18/19 Metformin HCl [Glucophage] 1,000 mg PO BID 02/18/19 Pramipexole Dihydrochloride [Mirapex -] 0.5 mg PO HS tablet 02/18/19 Semaglutide [Ozempic] 0.25 mg SQ WEEKLY 02/18/19 Tamsulosin HCl [Flomax -] 0.4 mg PO HS #30 cap.er.24h 02/18/19 Ibuprofen [Motrin -] 600 mg PO TID #21 tablet 06/11/19 Anemia: No Asthma: Yes Cancer: No Cardiac Disorders: Yes (SOB,) CVA: No COPD: No (sleep apnea, USES CPAP) CHF: No Dementia: No Diabetes: Yes GI Disorders: Yes (GERD) Disorders: Yes (KIDNEY STONES) HTN: Yes Hypercholesterolemia: Yes Kidney Stones: Yes Liver Disease: Yes (FATTY LIVER) Seizures: No Thyroid Disease: No - Surgical History Abdominal Surgery: Yes Appendectomy: No Cardiac Surgery: No Cholecystectomy: Yes Lung Surgery: No Neurologic Surgery: No Orthopedic Surgery: Yes (LEFT KNEE SX) - Immunization History Immunization Up to Date: Yes - Psycho-Social/Smoking History Smoking Status: Yes Smoking History: Never smoked Have you smoked in the past 12 months: Yes Number of Cigarettes Smoked Daily: 20 If you are a former smoker, when did you quit?: january, 'Breaking Loose' booklet given: 08/07/17 *Physical Exam - Vital Signs Last Vital Signs Temp Pulse Resp BP Pulse Ox 98 F 100 H 18 122/69 100 12/20/19 11:44 12/20/19 11:44 12/20/19 11:44 12/20/19 11:44 12/20/19 11:44 ED Treatment Course - RADIOLOGY Radiology Studies Ordered: Category Date Time Status HEAD CT WITHOUT CONTRAST [CT] Stat CT Scan 12/20/19 13:06 Ordered FEMUR-LEFT [RAD] Stat Radiology 12/20/19 13:07 Ordered HIP & PELVIS-LEFT [RAD] Stat Radiology 12/20/19 13:07 Ordered LEG TIB/FIB-LEFT [RAD] Stat Radiology 12/20/19 13:07 Ordered Discharge - Discharge Information Problems reviewed: Yes Clinical Impression/Diagnosis: Leg pain Qualifiers: Laterality: left Qualified Code(s): M79.605 - Pain in left leg Condition: Fair Disposition: HOME - Admission No - Follow up/Referral Referrals: Albert Quinonez MD [Primary Care Provider] - Esteban Cisneros MD [Staff Physician] - Vu Cruz DO [Staff Physician] - - Patient Discharge Instructions Additional Instructions: You were seen in the ER for left leg pain after a fall. We did a physical exam, x-rays of your left leg, and a CT scan of your head. You imaging did not show any emergent problems. We gave you 4mg of morphine for your pain, and you should not drive or operate machinery for the rest of the day. Please follow up with an orthopedist (we gave you a referral to Dr. Cruz) within the next three days for your leg, and your primary doctor within one week. Please also follow up with a neurologist (we gave you a referral to Dr. Cisneros), as your "jerk" movements may benefit from neurological workup and management. Until an orthopedist tells you otherwise, please wear the knee immobilizer brace and crutches we gave you. Please do not put weight on your left leg. You can continue to take Tylenol and Motrin at home as directed on the label. Please return to the ER for severe headache, confusion, vomiting, weakness, increased pain or swelling in your leg, or any other reason. - Post Discharge Activity
[2019-12-20] MEDS ORDERED: morphine CARPU-JECT 2 MG/1 ML DISP.SYRIN IM ONE (14:46)
[2019-12-20] MEDS ORDERED: morphine SULFATE 4 MG/ML VIAL ONE (14:54)
--- NOTE | 2019-12-20 15:26 | PDOC ---
Attending Attestation - Resident Resident Name: Cresencio Joya - ED Attending Attestation I have performed the following: I have examined & evaluated the patient, The case was reviewed & discussed with the resident, I agree w/resident's findings & plan, Exceptions are as noted - HPI HPI: 12/20/19 15:27 68 years old past medical history significant for CAD psoriasis CHF hypertension diabetes hyperlipidemia self-reported restless leg syndrome presents to the emergency department with repeated falls out of bed. Patient attributes this to his restless leg syndrome it was recommended that he has a rale on his bed but has not yet procured 1 During 1 of his falls he has injured his left thigh. Denies any head trauma is able to ambulate but has significant pain to his left thigh above his knee pain is worse with ambulation persistent constant alleviated somewhat by rest - Physicial Exam PE: 12/20/19 15:28 Vitals: Triage Vital signs reviewed General Appearance: No acute distress, well nourished well developed, Head: Atraumatic, Cardiac: Regular rate and rhythym, no murmurs, no rubs, no gallops, Lungs: Clear to auscultation bilateral, good air movement bilaterally, Abdomen: Soft, non distended, normal bowel sounds, non tender to palpation Extremities: Full range of motion to all extremities, no cyanosis, clubbing, or edema Skin: Warm and dry, no rashes or lesions, no rash, no petechiae Neuro: Strength within normal limits, sensation within normal limits able to ambulate Psych: Normal mood, normal affect - Medical Decision Making 12/20/19 15:58 Left leg pain reproducible tenderness to palpation over the left quad. Worse with extension. Been able to ambulate. No acute fracture dislocations noted on x-ray. No acute findings noted on head CT. Patient provided with pain medication provided with knee immobilizer crutches instructed to follow-up with neurology for restless leg as well as orthopedics Findings, the need for follow-up, strict return instructions discussed with patient. Discharge - Discharge Information Problems reviewed: Yes Clinical Impression/Diagnosis: Leg pain Qualifiers: Laterality: left Qualified Code(s): M79.605 - Pain in left leg Condition: Fair Disposition: HOME - Follow up/Referral Referrals: Esteban Cisneros MD [Staff Physician] - Vu Cruz DO [Staff Physician] - Albert Quinonez MD [Primary Care Provider] - - Patient Discharge Instructions Additional Instructions: You were seen in the ER for left leg pain after a fall. We did a physical exam, x-rays of your left leg, and a CT scan of your head. You imaging did not show any emergent problems. We gave you 4mg of morphine for your pain, and you should not drive or operate machinery for the rest of the day. Please follow up with an orthopedist (we gave you a referral to Dr. Cruz) within the next three days for your leg, and your primary doctor within one week. Please also follow up with a neurologist (we gave you a referral to Dr. Cisneros), as your "jerk" movements may benefit from neurological workup and management. Until an orthopedist tells you otherwise, please wear the knee immobilizer brace and crutches we gave you. Please do not put weight on your left leg. You can continue to take Tylenol and Motrin at home as directed on the label. Please return to the ER for severe headache, confusion, vomiting, weakness, increased pain or swelling in your leg, or any other reason. - Post Discharge Activity
== END 2019-12-20 15:35 | disposition home or self-care (01) ==
LOC: JER 11:35
PROC: 3E023NZ Introduction of Analgesics, Hypnotics, Sedatives into Muscle, Percutaneous Approach (ICD-10-PCS; principal; 2019-12-20)
DX: M79.605 Pain in left leg (principal)
CPT/HCPCS: 70450-TC; 73523-TC-FY; 73552-TC-LT-FY; 73590-TC-LT-FY; 99285-25

== ENCOUNTER 2022-06-18 07:18 | Emergency (ER) | payer OTHER ==
[2022-06-18 07:36] VITALS: BP 126/73; PULSE 84; RESP 20; TEMP 98.5; BMI 44.2
[2022-06-18] MEDS ORDERED: ACETAMINOPHEN 1000 MG/100 ML BAG IVPB ONE (08:45)
[2022-06-18] MEDS ORDERED: LIDOCAINE 5% TOPICAL PATCH TP ONE (08:45)
[2022-06-18] MEDS ORDERED: ACETAMINOPHEN INJECTION 100 ML IVPB ONE (09:35)
[2022-06-18] MEDS ORDERED: LIDOCAINE 5% TOPICAL PATCH ONE (09:36)
[2022-06-18 10:39] LABS: BASO % 0.9 % (0-2.0); HEMATOCRIT 47.6 % (35.4-49); HEMOGLOBIN 15.8 GM/dL (11.7-16.9); LYMPH % 24.9 % (8-40); MCHC 33.2 g/dl (32.0-35.9); MEAN CELL VOLUME 93.2 fl (80-96); MEAN PLT VOLUME 8.2 fl (7.5-11.1); MONO % 6.1 % (3.8-10.2); NEUT % 62.1 % (42.8-82.8); PLATELET COUNT 204 10^3/uL (134-434); RDW 14.6 % (11.9-15.9); WHITE BLOOD COUNT 8.1 K/mm3 (4.0-10.0)
[2022-06-18 11:05] LABS: CALCIUM 9.9 mg/dL (8.5-10.1)
[2022-06-18 11:06] LABS: BLOOD UREA NITROGEN 24.7 mg/dL (7-18)
[2022-06-18 11:09] LABS: ALBUMIN 3.8 g/dl (3.4-5.0); CREATININE 1.2 mg/dL (0.55-1.3)
[2022-06-18 11:10] LABS: BILIRUBIN,TOTAL 0.3 mg/dL (0.2-1)
[2022-06-18 11:14] LABS: TOT PROT 7.1 g/dl (6.4-8.2)
[2022-06-18 11:18] LABS: PH,URINE 5.5 (5.0-8.0); URINE APPEARANCE CLEAR; URINE BILIRUBIN NEGATIVE (NEGATIVE); URINE COLOR YELLOW; URINE GLUCOSE (UA) 3+ (NEGATIVE); URINE KETONE NEGATIVE (NEGATIVE); URINE LEUK ESTERASE NEGATIVE (NEGATIVE); URINE NITRITE NEGATIVE (NEGATIVE); URINE PROTEIN NEGATIVE (NEGATIVE); URINE UROBILINOGEN 0.2 mg/dL (0.2-1.0)
[2022-06-18] MEDS ORDERED: LIDOCAINE PATCH REMOVAL MC ONE (22:00)
== END 2022-06-18 14:51 | disposition home or self-care (01) ==
LOC: JER 07:18
PROC: 3E033NZ Introduction of Analgesics, Hypnotics, Sedatives into Peripheral Vein, Percutaneous Approach (ICD-10-PCS; principal; 2022-06-18)
DX: S16.1XXA Strain of muscle, fascia and tendon at neck level, initial encounter (principal); X50.0XXA Overexertion from strenuous movement or load, initial encounter
CPT/HCPCS: 36415; 72131-TC; 74177-TC; 80053; 81003; 83690; 85025; 87086; 96374; 99285-25; Q9967

== ENCOUNTER 2022-10-30 15:29 | Emergency (ER) | payer OTHER ==
[2022-10-30 15:47] VITALS: BP 150/65; PULSE 62; RESP 18; TEMP 97.8; BMI 41.1
[2022-10-30] MEDS ORDERED: ACETAMINOPHEN 1000 MG/100 ML BAG IVPB ONE (17:22)
[2022-10-30] MEDS ORDERED: morphine CARPU-JECT 4 MG/1 ML DISP.SYRIN IVPUSH ONE (17:24)
[2022-10-30] MEDS ORDERED: ACETAMINOPHEN INJECTION 100 ML IVPB ONE (17:42)
[2022-10-30] MEDS ORDERED: morphine SULFATE 4 MG/ML VIAL ONE (17:42)
[2022-10-30 18:06] LABS: BASO % 0.6 % (0-2.0); EOS % 3.9 % (0-4.5); HEMATOCRIT 46.4 % (35.4-49); HEMOGLOBIN 15.5 GM/dL (11.7-16.9); LYMPH % 18.2 % (8-40); MCH 30.5 pg (25.7-33.7); MCHC 33.4 g/dl (32.0-35.9); MEAN CELL VOLUME 91.3 fl (80-96); MEAN PLT VOLUME 7.8 fl (7.5-11.1); NEUT % 71.3 % (42.8-82.8); PLATELET COUNT 223 10^3/uL (134-434); RBC 5.08 M/mm3 (4.00-5.60); RDW 14.7 % (11.9-15.9); WHITE BLOOD COUNT 8.8 K/mm3 (4.0-10.0)
[2022-10-30 18:28] LABS: POTASSIUM 4.5 mmol/L (3.5-5.1)
[2022-10-30 18:30] LABS: CALCIUM 9.3 mg/dL (8.5-10.1)
[2022-10-30 18:31] LABS: ALBUMIN 3.4 g/dl (3.4-5.0); BLOOD UREA NITROGEN 15.7 mg/dL (7-18)
[2022-10-30 18:35] LABS: BILIRUBIN,TOTAL 0.4 mg/dL (0.2-1); TOT PROT 6.4 g/dl (6.4-8.2)
== END 2022-10-30 21:41 | disposition home or self-care (01) ==
LOC: JER 15:29
PROC: 3E033NZ Introduction of Analgesics, Hypnotics, Sedatives into Peripheral Vein, Percutaneous Approach (ICD-10-PCS; principal; 2022-10-30)
PROC: 3E033GC Introduction of Other Therapeutic Substance into Peripheral Vein, Percutaneous Approach (ICD-10-PCS; 2022-10-30)
DX: M25.551 Pain in right hip (principal); W11.XXXA Fall on and from ladder, initial encounter; Y92.009 Unspecified place in unspecified non-institutional (private) residence as the place of occurrence of the external cause
CPT/HCPCS: 36415; 72170-TC-FY; 73502-TC-RT-FY; 80053; 85025; 99284-25

== ENCOUNTER 2022-11-28 19:29 | Day surgery (SDC) | payer OTHER ==
[2022-11-28] MEDS ORDERED: morphine CARPU-JECT 4 MG/1 ML DISP.SYRIN IVPUSH ONE (21:37)
[2022-11-28] MEDS ORDERED: SODIUM CHLORIDE 1,000 ML IV STA (21:37)
[2022-11-28] MEDS ORDERED: ONDANSETRON 4 MG/2 ML VIAL IVPUSH ONE (21:37)
[2022-11-28] MEDS ORDERED: ONDANSETRON 4 MG/2 ML VIAL ONE (21:54)
[2022-11-28] MEDS ORDERED: morphine SULFATE 4 MG/ML VIAL ONE (21:54)
[2022-11-28 21:59] LABS: BASO % 0.5 % (0-2.0); EOS % 3.6 % (0-4.5); HEMATOCRIT 48.2 % (35.4-49); HEMOGLOBIN 16.5 GM/dL (11.7-16.9); LYMPH % 14.2 % (8-40); MCH 31.1 pg (25.7-33.7); MCHC 34.2 g/dl (32.0-35.9); MEAN CELL VOLUME 90.9 fl (80-96); MEAN PLT VOLUME 7.8 fl (7.5-11.1); NEUT % 74.7 % (42.8-82.8); PLATELET COUNT 214 10^3/uL (134-434); WHITE BLOOD COUNT 12.7 K/mm3 (4.0-10.0)
[2022-11-28 22:35] LABS: EPI CELLS 6 /uL (0-25.1); HYALINE CASTS 0 /uL (0-3.1); URINE APPEARANCE CLEAR; URINE BACTERIA 20 /uL (0-1359); URINE BILIRUBIN NEGATIVE (NEGATIVE); URINE COLOR YELLOW; URINE GLUCOSE (UA) 3+ (NEGATIVE); URINE KETONE NEGATIVE (NEGATIVE); URINE LEUK ESTERASE NEGATIVE (NEGATIVE); URINE NITRITE NEGATIVE (NEGATIVE); URINE PROTEIN NEGATIVE (NEGATIVE); URINE UROBILINOGEN 0.2 mg/dL (0.2-1.0); URINE WBC 7 /uL (0-25.8)
[2022-11-28 22:43] LABS: POTASSIUM 4.4 mmol/L (3.5-5.1)
[2022-11-28 22:45] LABS: CALCIUM 9.8 mg/dL (8.5-10.1)
[2022-11-28 22:46] LABS: ALBUMIN 3.9 g/dl (3.4-5.0); BLOOD UREA NITROGEN 24.2 mg/dL (7-18)
[2022-11-28 22:49] LABS: CREATININE 1.5 mg/dL (0.55-1.3)
[2022-11-28 22:50] LABS: TOT PROT 7.5 g/dl (6.4-8.2)
[2022-11-28 22:51] LABS: BILIRUBIN,TOTAL 0.3 mg/dL (0.2-1)
[2022-11-28] MEDS ORDERED: HYDROmorphone HCl 2 MG/ML VIAL IVPUSH ONE (23:41)
[2022-11-29] MEDS ORDERED: HYDROmorphone HCl 2 MG/ML VIAL ONE (00:03)
[2022-11-29] MEDS ORDERED: ZOLPIDEM TARTRATE 5 MG TABLET PO PRN ×2 (12:17→16:11)
[2022-11-29] MEDS ORDERED: ACETAMINOPHEN 1000 MG/100 ML BAG IVPB PRN ×3 (12:19→16:11)
[2022-11-29] MEDS ORDERED: ASPIRIN COATED 81 MG TABLET.EC PO SCH (12:30)
[2022-11-29] MEDS ORDERED: DEXTROSE 5%-0.45% SALINE 1,000 ML IV SCH (12:30)
[2022-11-29] MEDS ORDERED: PROPOFOL 20 ML ONE (14:07)
[2022-11-29] MEDS ORDERED: MIDAZOLAM HCL 2 MG/2 ML SINGLE DOSE VIAL ONE ×2 (14:07→15:16)
[2022-11-29] MEDS ORDERED: ceFAZolin SODIUM 1 GM VIAL IVPB ONE (15:30)
[2022-11-29] MEDS ORDERED: ONDANSETRON 4 MG/2 ML VIAL IVPUSH PRN (16:08)
[2022-11-29] MEDS ORDERED: LACTATED RINGERS SOLUTION 1,000 ML IV SCH (16:15)
[2022-11-29] MEDS ORDERED: metFORMIN HCL 500 MG TABLET (FP) PO SCH (16:30)
[2022-11-29] MEDS ORDERED: INSULIN SLIDING SCALE (NOVOLOG) 1 VIAL SQ SCH (16:30)
[2022-11-29] MEDS: DEXTROSE 5%-0.45% SALINE 1,000 ML IV SCH (17:00)
[2022-11-29 17:34] VITALS: RESP 18
[2022-11-29] MEDS: metFORMIN HCL 500 MG TABLET (FP) PO SCH (17:52)
[2022-11-29] MEDS: INSULIN SLIDING SCALE (NOVOLOG) 1 VIAL SQ SCH ×2 (17:53→22:50)
[2022-11-29] MEDS ORDERED: TAMSULOSIN HCL 0.4 MG CAP PO SCH ×2 (22:00)
[2022-11-29] MEDS ORDERED: ATORVASTATIN CA 10 MG TABLET (FP) PO SCH (22:00)
[2022-11-29] MEDS: ATORVASTATIN CA 10 MG TABLET (FP) PO SCH ×2 (22:29→22:54)
[2022-11-30] MEDS: metFORMIN HCL 500 MG TABLET (FP) PO SCH ×2 (06:34→17:19)
[2022-11-30] MEDS: INSULIN SLIDING SCALE (NOVOLOG) 1 VIAL SQ SCH ×3 (06:37→18:09)
[2022-11-30 09:50] LABS: BASO % 0.2 % (0-2.0); EOS % 0.2 % (0-4.5); HEMATOCRIT 46.1 % (35.4-49); HEMOGLOBIN 15.4 GM/dL (11.7-16.9); LYMPH % 9.3 % (8-40); MCH 30.7 pg (25.7-33.7); MCHC 33.3 g/dl (32.0-35.9); MEAN PLT VOLUME 8.4 fl (7.5-11.1); MONO % 5.3 % (3.8-10.2); PLATELET COUNT 210 10^3/uL (134-434); RBC 5.02 M/mm3 (4.00-5.60); RDW 14.6 % (11.9-15.9); WHITE BLOOD COUNT 12.8 K/mm3 (4.0-10.0)
[2022-11-30] MEDS ORDERED: LOSARTAN POTASSIUM 50 MG TABLET PO SCH ×2 (10:00)
[2022-11-30] MEDS ORDERED: ENOXAPARIN NA (PORCINE) 40 MG/0.4 ML DISP.SYRIN SQ SCH (10:00)
[2022-11-30] MEDS ORDERED: EZETIMIBE 10 MG TABLET (FP) PO SCH (10:00)
[2022-11-30] MEDS ORDERED: HYDROCHLOROTHIAZIDE 25 MG TABLET (FP) PO SCH ×2 (10:00)
[2022-11-30 10:08] LABS: POTASSIUM 4.4 mmol/L (3.5-5.1)
[2022-11-30 10:11] LABS: ALBUMIN 3.4 g/dl (3.4-5.0); BLOOD UREA NITROGEN 23.9 mg/dL (7-18); CALCIUM 9.3 mg/dL (8.5-10.1)
[2022-11-30 10:15] LABS: CREATININE 1.2 mg/dL (0.55-1.3)
[2022-11-30 10:16] LABS: BILIRUBIN,TOTAL 0.3 mg/dL (0.2-1)
[2022-11-30 10:17] LABS: TOT PROT 6.7 g/dl (6.4-8.2)
[2022-11-30] MEDS: EZETIMIBE 10 MG TABLET (FP) PO SCH ×2 (10:17→10:36)
[2022-11-30] MEDS: ASPIRIN COATED 81 MG TABLET.EC PO SCH ×2 (10:17→10:36)
[2022-11-30] MEDS: ENOXAPARIN NA (PORCINE) 40 MG/0.4 ML DISP.SYRIN SQ SCH ×2 (10:18→10:37)
[2022-11-30 11:42] LABS: URINE RBC 180.8 /uL (0-23.9); YEAST NEGATIVE (NEGATIVE)
[2022-11-30 14:49] VITALS: BP 108/68; PULSE 72; TEMP 98.2; BMI 41.1
[2022-11-30] MEDS: DEXTROSE 5%-0.45% SALINE 1,000 ML IV SCH ×2 (14:49→17:19)
== END 2022-11-30 19:07 | disposition home or self-care (01) ==
LOC: JER 19:29 → JERBED 11-29 03:28 → UNDOADMIN 11-29 03:28 → J5S 11-29 13:46 → JERBED 11-29 13:46 → JASUSAT 11-30 14:10 → J5S 11-30 14:34 → JASUSAT 11-30 19:07
PROVIDERS: ATTEND Internal Medicine
PROC: 0T778DZ Dilation of Left Ureter with Intraluminal Device, Via Natural or Artificial Opening Endoscopic (ICD-10-PCS; principal; 2022-11-30)
DX: N13.1 Hydronephrosis with ureteral stricture, not elsewhere classified (principal)
CPT/HCPCS: 36415; 74176-TC; 76000-TC-FY; 80053; 81003; 82962; 85025; 87086; 94760; 99285-25; C1758; C2617

== ENCOUNTER 2023-08-02 12:39 | Emergency (ER) | payer OTHER ==
[2023-08-02 12:55] VITALS: RESP 18; BMI 41.1
[2023-08-02 15:01] LABS: BASO % 0.7 % (0-2.0); EOS % 5.3 % (0-4.5); HEMATOCRIT 46.8 % (35.4-49); HEMOGLOBIN 15.2 GM/dL (11.7-16.9); MCH 30.3 pg (25.7-33.7); MCHC 32.4 g/dl (32.0-35.9); MEAN CELL VOLUME 93.3 fl (80-96); MEAN PLT VOLUME 7.9 fl (7.5-11.1); MONO % 8.4 % (3.8-10.2); NEUT % 63.6 % (42.8-82.8); PLATELET COUNT 230 10^3/uL (134-434); RBC 5.02 M/mm3 (4.00-5.60); RDW 15.2 % (11.9-15.9); WHITE BLOOD COUNT 10.2 K/mm3 (4.0-10.0)
[2023-08-02 15:19] LABS: POTASSIUM 4.8 mmol/L (3.5-5.1)
[2023-08-02 15:21] LABS: CALCIUM 9.8 mg/dL (8.5-10.1)
[2023-08-02] MEDS ORDERED: ACETAMINOPHEN INJECTION 100 ML IVPB ONE (15:21)
[2023-08-02] MEDS ORDERED: METOCLOPRAMIDE HCL INJECTION 10 MG/2 ML VIAL ONE (15:21)
[2023-08-02 15:22] LABS: ALBUMIN 3.6 g/dl (3.4-5.0); BLOOD UREA NITROGEN 18.6 mg/dL (7-18)
[2023-08-02 15:26] LABS: BILIRUBIN,TOTAL 0.3 mg/dL (0.2-1); CREATININE 1.2 mg/dL (0.55-1.3); TOT PROT 6.9 g/dl (6.4-8.2)
[2023-08-02] MEDS: ACETAMINOPHEN 1000 MG/100 ML BAG IVPB ONE (16:08)
[2023-08-02] MEDS: METOCLOPRAMIDE HCL INJECTION 10 MG/2 ML VIAL IVPUSH ONE (16:09)
[2023-08-02 17:44] VITALS: BP 111/57; PULSE 67; TEMP 98.2
[2023-08-02] MEDS ORDERED: KETOROLAC TROMETHAMINE 15 MG/ML VIAL ONE (19:36)
[2023-08-02] MEDS: KETOROLAC TROMETHAMINE 15 MG/ML VIAL IVPUSH ONE (19:40)
== END 2023-08-02 19:47 | disposition home or self-care (01) ==
LOC: JER 12:39
PROC: 3E030NZ Introduction of Analgesics, Hypnotics, Sedatives into Peripheral Vein, Open Approach (ICD-10-PCS; principal; 2023-08-02)
PROC: 3E0303Z Introduction of Anti-inflammatory into Peripheral Vein, Open Approach (ICD-10-PCS; 2023-08-02)
DX: R51.9 Headache, unspecified (principal); M25.561 Pain in right knee; R60.0 Localized edema; R20.0 Anesthesia of skin
CPT/HCPCS: 36415; 70450-TC; 80053; 84484; 85025; 85379; 93005; 93010; 93971-TC; 96374; 96375; 99285-25; J0131

== ENCOUNTER 2023-10-15 17:18 | Emergency (ER) | payer OTHER ==
[2023-10-15 17:24] VITALS: BP 122/64; PULSE 83; RESP 16; TEMP 98.1; BMI 41.8
[2023-10-15] MEDS ORDERED: ACETAMINOPHEN INJECTION 100 ML IVPB ONE (19:09)
[2023-10-15] MEDS: ACETAMINOPHEN 1000 MG/100 ML BAG IVPB ONE (19:13)
[2023-10-15 19:18] LABS: BASO % 0.8 % (0-2.0); EOS % 4.8 % (0-4.5); HEMATOCRIT 45.3 % (35.4-49); LYMPH % 19.7 % (8-40); MCH 30.5 pg (25.7-33.7); MEAN CELL VOLUME 92.4 fl (80-96); MEAN PLT VOLUME 8.2 fl (7.5-11.1); MONO % 8.4 % (3.8-10.2); NEUT % 66.3 % (42.8-82.8); PLATELET COUNT 219 10^3/uL (134-434); RBC 4.91 M/mm3 (4.00-5.60); RDW 14.5 % (11.9-15.9); WHITE BLOOD COUNT 8.4 K/mm3 (4.0-10.0)
[2023-10-15 19:41] LABS: POTASSIUM 4.2 mmol/L (3.5-5.1)
[2023-10-15 19:42] LABS: CALCIUM 10.2 mg/dL (8.5-10.1)
[2023-10-15 19:43] LABS: ALBUMIN 3.8 g/dl (3.4-5.0); BLOOD UREA NITROGEN 21.3 mg/dL (7-18)
[2023-10-15 19:46] LABS: CREATININE 1.2 mg/dL (0.55-1.3)
[2023-10-15 19:48] LABS: BILIRUBIN,TOTAL 0.4 mg/dL (0.2-1); TOT PROT 7.1 g/dl (6.4-8.2)
[2023-10-15] MEDS ORDERED: LIDOCAINE 4% PATCH TP ONE (22:22)
[2023-10-15] MEDS ORDERED: KETOROLAC TROMETHAMINE 15 MG/ML VIAL ONE (22:23)
[2023-10-15] MEDS: LIDOCAINE 4% PATCH TP ONE (22:37)
[2023-10-15] MEDS: KETOROLAC TROMETHAMINE 15 MG/ML VIAL IVPUSH ONE (22:38)
[2023-10-16] MEDS ORDERED: LIDOCAINE PATCH REMOVAL MC SCH (08:00)
== END 2023-10-15 22:49 | disposition home or self-care (01) ==
LOC: JER 17:18
PROC: 3E033NZ Introduction of Analgesics, Hypnotics, Sedatives into Peripheral Vein, Percutaneous Approach (ICD-10-PCS; principal; 2023-10-15)
PROC: 3E0333Z Introduction of Anti-inflammatory into Peripheral Vein, Percutaneous Approach (ICD-10-PCS; 2023-10-15)
PROC: 3E0333Z Introduction of Anti-inflammatory into Peripheral Vein, Percutaneous Approach (ICD-10-PCS; 2023-10-15)
DX: M79.604 Pain in right leg (principal)
CPT/HCPCS: 36415; 80053; 85025; 86850; 86900; 86901; 93971-TC; 96365; 96375; 99284-25; J0131

== ENCOUNTER 2024-01-05 12:46 | Emergency (ER) | payer OTHER ==
[2024-01-05 12:57] VITALS: BP 145/79; PULSE 92; RESP 18; TEMP 98.1; BMI 41.8
[2024-01-05 14:13] LABS: BASO % 0.5 % (0-2.0); EOS % 3.8 % (0-4.5); HEMATOCRIT 45.5 % (35.4-49); HEMOGLOBIN 15.1 GM/dL (11.7-16.9); LYMPH % 20.5 % (8-40); MCH 31.1 pg (25.7-33.7); MCHC 33.3 g/dl (32.0-35.9); MEAN CELL VOLUME 93.5 fl (80-96); MEAN PLT VOLUME 7.4 fl (7.5-11.1); MONO % 8.7 % (3.8-10.2); NEUT % 66.5 % (42.8-82.8); PLATELET COUNT 246 10^3/uL (134-434); RBC 4.86 M/mm3 (4.00-5.60); RDW 14.8 % (11.9-15.9)
[2024-01-05] MEDS ORDERED: ACETAMINOPHEN 325 MG TABLET (FP) ONE (14:44)
[2024-01-05] MEDS: ACETAMINOPHEN 325 MG TABLET (FP) PO ONE (14:47)
[2024-01-05 14:49] LABS: POTASSIUM 4.6 mmol/L (3.5-5.1)
[2024-01-05 14:51] LABS: CALCIUM 10.5 mg/dL (8.5-10.1)
[2024-01-05 14:52] LABS: ALBUMIN 3.8 g/dl (3.4-5.0); BLOOD UREA NITROGEN 20.7 mg/dL (7-18)
[2024-01-05 14:55] LABS: CREATININE 1.2 mg/dL (0.55-1.3)
[2024-01-05 14:56] LABS: BILIRUBIN,TOTAL 0.4 mg/dL (0.2-1)
[2024-01-05 14:57] LABS: TOT PROT 6.9 g/dl (6.4-8.2)
== END 2024-01-05 17:41 | disposition home or self-care (01) ==
LOC: JER 12:46
DX: R20.0 Anesthesia of skin (principal); R20.2 Paresthesia of skin; R68.84 Jaw pain; R29.810 Facial weakness
CPT/HCPCS: 36415; 70460-TC; 70491-TC; 80053; 82962; 85025; 93005; 93010; 99285-25